=== PATIENT | female | born 1965 | race Caucasian/White ===

== ENCOUNTER 2024-07-09 13:12 | Outpatient (AMB) | payer BC, SELFPAY ==
--- NOTE | 2024-07-09 13:14 | MHC.OFFVIS ---
Vital Signs 07/09/24 13:16 Height 5 ft 6 in Weight 170 lb 13.732 oz BMI 27.6 BP 126/72 Blood Pressure Location Lt brachial Position Sitting Pulse 72 Pulse Source Pulse Oximeter Pulse Oximetry (%) 98 Oxygen Delivery Method Room Air Intake Visit Reasons: Rheumatoid Arthritis Intake Note: Patient presents for follow up on rheumatoid arthitis. Allergies No Known Allergies Allergy (Verified 07/09/24 13:18) HPI HPI Rheumatoid Arthritis: Details: R trochanteric bursa pain is uncontrolled. No benefit with cortisone injection [address] Quiñonez ATC. She is not consistent with home exercise program. Completed PT in the past. Held DMARDs for 2 weeks for vaccinations. Increase stiffness. TB test positive in March then repeat was negative. CXR was negative. [facility] Medical History (Updated 07/09/24 @ 14:12 by Nacho Ngo MD) Bilateral bunions Bursitis of hip, right Rheumatoid aortitis Social History (Updated 07/09/24 @ 13:29 by Cindy Martinez CMA) Alcohol intake: current Alcohol intake frequency: holidays/special occasions only Alcohol type: wine Patient Tobacco Use Status: Never used Tobacco Review of Systems Const All systems reviewed & are unremarkable except as noted in HPI and below Physical Exam Vital Signs: Last Vital Signs Pulse 72 07/09/24 13:16 BP 126/72 07/09/24 13:16 Pulse Ox 98 07/09/24 13:16 Oxygen Delivery Method Room Air 07/09/24 13:16 BMI result Body Mass Index 27.6 Const Other: General: Comfortable CVS: RRR Respiratory: clear to auscultation bilaterally. Good respiratory effort Skin: No lesions seen MSK: No tenderness of any joints. She has volar subluxation right 2nd and 3rd MCP with bilateral ulnar deviation of MCPs. Synovitis present left MTPs without pain. Good range of motion of upper extremities and lower extremities. Bilateral trochanteric bursa tenderness found. Assessment & Plan Assessment & Plan (1) Rheumatoid arthritis: Comment: She has clinical control on combination Hyrimoz and methotrexate. She felt better when she was on Humira and even more better when she was on Enbrel. She has stiffness and sometimes is not consistent with taking her DMARD therapy on time and may skip a week. She will work on consistency for next visit. Code(s): M06.9 - Rheumatoid arthritis, unspecified Category: Medical Plan: Continue Hyrimoz weekly subcutaneous injection Continue methotrexate 17.5 mg once weekly Continue folic acid 1 mg daily Can consider increasing methotrexate dose at follow-up visit Return to clinic in 3 months [facility] (2) Other manager long term care (current) drug therapy: Code(s): Z79.899 - Other [facility] Category: Medical Plan: See above (3) Trochanteric bursitis of both hips: Comment: Uncontrolled pain. Code(s): M70.61 - Trochanteric bursitis, right hip; M70.62 - Trochanteric bursitis, left hip Category: Medical Plan: I recommend regular exercise program at home Return to clinic 3 months Orders: Orders Hepatitis B,C Profile Today M06.9 - Rheumatoid arthritis, unspecified, Z79.899 - Other manager long term care (current) drug therapy Coding Level of Care Code Est Pt Level 4 (60659) Complex EM visit Add On G2211 Diagnoses Rheumatoid arthritis M06.9 Other manager long term care (current) drug therapy Z79.899 Trochanteric bursitis of both hips M70.61; M70.62
[2024-07-09 13:16] VITALS: BP 126/72; PULSE 72; O2SAT 98; BMI 27.6
--- OUTSIDE RECORDS SUMMARY | 2024-07-09 14:22 | XMS_ITS ---
Author Name [facility] Organization Unknown History of Medication Use Medication Directions Dispensed Refills Start Date End Date Stat us Sodium Fluoride 5000 Plus 1.1 % dental cream USE DIRECTED 04/12/2024 complet ed Enbrel SureClick 50 mg/mL (1 mL) subcutaneous pen injector 04/12/2024 completed Flucelvax Quad (PF) 60 mcg (15 mcg x 4)/0.5 mL IM syringe 04/12/2024 completed Humira(CF) Pen 40 mg/0.4 mL subcutaneous kit 04/12/2024 complete d folic acid 1 mg tablet 04/12/2024 active Hyrimoz(CF) Pen 40 mg/0.4 mL subcutaneous pen injector 04/12/2024 active meloxicam 15 mg tablet TAKE 1 TABLET BY MOUTH EVERY DAY WITH FOOD NEEDED 04/12/2024 active Flowflex COVID-19 Antigen Home Test kit TEST DIRECTED TODAY 04/12/2024 completed methotrexate sodium 2.5 mg tablet TAKE 7 TABLETS BY MOUTH ONCE PER WEK 04/12/2024 active atorvastatin 10 mg tablet 04/12/2024 active ibuprofen 600 mg tablet TAKE 1 TABLET BY MOUTH EVERY 6 TO 8 HOURS NEEDED FOR PAIN 04/12/2024 completed azithromycin 250 mg tablet TAKE 2 TABLETS BY MOUTH ON DAY 1 THEN 1 TABLET BY MOUTH EVERY DAY DAYS 2 THROUGHT 5 04/12/2024 completed neomycin 3.5 mg/g-polymyxin B 10,000 unit/g-dexameth 0.1 % eye oint 04/12/2024 completed amoxicillin 500 mg tablet TAKE 1 TABLET BY MOUTH THREE TIMES DAILY FOR 10 DAYS 04/12/2024 completed prednisone 5 mg tablet TAKE 3 TABLETS BY MOUTH EVERY DAY FOR 7 DAYS THEN TAKE 2 TABLETS BY MOUTH EVERY DAY FOR 7 DAYS THEN TAKE 1 TABLET BY MOUTH EVERY DAY FOR 7 DAYS 04/12/2024 completed neomycin-polymyxin- dexameth 3.5 mg/mL-10,000 unit/mL-0.1% eye drops 04/12/2024 completed Suprep Bowel Prep Kit 17.5 gram-3.13 gram-1.6 gram oral solution MX AND DRK UTD 04/12/2024 completed benzonatate 100 mg capsule 04/12/2024 completed folic acid (FOLVITE) tablet 1 mg Take 1 tablet (1 mg total) by mouth daily. 11/03/2023 active VITAMIN D, ERGOCALCIFEROL, PO Take 4,000 Units by mouth. 11/03/2023 active atorvastatin (LIPITOR) tablet 10 mg TAKE 1 TABLET(10 MG) BY MOUTH DAILY 11/03/2023 active methotrexate 2.5 MG tablet Take 1 tablet (2.5 mg total) by mouth once a week. 7 tablets once a week 11/03/2023 active azithromycin (Zithromax Z-Lopez) 250 MG tablet Take 2 tablets (500 mg) on Day 1, followed by 1 tablet (250 mg) once daily on Days 2 through 5. 11/03/2023 aborted Acetaminophen (TYLENOL 8 HOUR PO) Take by mouth as needed. 11/03/2023 active Zinc 30 MG TABS 11/03/2023 abort ed Hyrimoz 40 MG/0.4ML SOAJ once a week. 11/03/2023 active meloxicam (MOBIC) 15 MG tablet Take 1 tablet (15 mg total) by mouth continuous prn for pain. 11/03/2023 active HUMIRA PEN 40 MG/0.4ML prefilled pen injector 11/03/2023 aborted methotrexate sodium 2.5 mg tablet TAKE 6 TABLETS BY MOUTH 1 TIME A WEEK TAKE 6 TABLETS BY MOUTH 1 TIME A WEEK 04/01/2022 completed atorvastatin 10 mg tablet atorvastatin 10 mg tablet 04/01/2022 completed Humira(CF) Pen 40 mg/0.4 mL subcutaneous kit Humira(CF) Pen 40 mg/0.4 mL subcutaneous kit 04/01/2022 completed meloxicam 15 mg tablet TAKE 1 TABLET BY MOUTH DAILY TAKE 1 TABLET BY MOUTH DAILY 04/01/2022 completed folic acid 1 mg tablet folic acid 1 mg tablet 04/01/2022 completed zinc zinc 04/01/2022 completed Problems Problem Status Onset Date Problem Type Date of Resolution Source Overweight (BMI 25.0-29.9) active 8 ProblemAct [facility] Hyperlipidemia active 8 ProblemAct [facility] Pain of left forearm active 2023-01-05 9 ProblemAct [facility] Encounter for screening colonoscopy active 8 ProblemAct [facility] Venous insufficiency active EncounterDiagnosisA ct [facility] Injury of toe on right foot active 2023-03-08 5 ProblemAct [facility] Palpitations active 8 ProblemAct [facility] Visit for screening mammogram active 8 ProblemAct [facility] Flu vaccine need active 2023-03-08 5 ProblemAct [facility] Adjustment disorder active 2020-04-08 6 ProblemAct [facility] Memory difficulties active 2 ProblemAct [facility] Dizziness active 2020-04-08 6 ProblemAct [facility] History of palpitations active EncounterDiagnos isAct [facility] Suspected sleep apnea active 2022-09-05 4 ProblemAct [facility] Hematuria active 2022-09-05 4 ProblemAct [facility] Vitamin D deficiency active 3 ProblemAct [facility] RA (rheumatoid arthritis) active 1 ProblemAct [facility] Gross hematuria active 2020-02-06 1 ProblemAct [facility] BMI 27.0-27.9,adult active 2022-09-05 4 ProblemAct [facility] COVID-19 active 4 ProblemAct [facility] Asymptomatic varicose veins of both lower extremities active 2022-09-05 4 ProblemAct [facility] Stress active 8 ProblemAct [facility] Chronic RLQ pain active 2022-09-05 4 ProblemAct [facility] Hyponatremia active 2022-01-06 9 ProblemAct [facility] BMI 30.0-30.9,adult active 2020-04-08 6 ProblemAct [facility] Suprapubic discomfort active 2020-02-06 1 ProblemAct [facility] Bilateral lower extremity edema active 2 ProblemAct [facility] Upper respiratory tract infection active 2 ProblemAct [facility] Hypercholesterolemia active 2022-03-09 3 ProblemAct [facility] Rheumatoid arthritis active 2022-03-09 3 ProblemAct [facility] Immunizations Vaccine Date Source Lot Number Status Covid-19 (Thinkature) Dilution Required 09/28/2020 [facility] [id number] completed Influenza Quad (Flucelvax) 0 .5mL >6mon (ccIIV4) 03/22/2023 [facility] [id number] completed Covid-19 (Pfizer) Dilution Required 08/30/2020 [facility] [id number] completed Pneumococcal Polysaccharide PPSV23 07/15/2019 [facility] S [id number] completed Covid-19 (Pfizer) Dilution Required 12/08/2021 [facility] [id number] completed Covid-19 (Pfizer) Dilution Required 04/24/2022 [facility] [id number] completed Influenza Quad (Flucelvax) 0 .5mL >6mon (ccIIV4) 05/08/2022 [facility] [id number] completed Adacel (Tdap) 05/08/2022 [facility] [id number] completed
== END 2024-07-09 14:11 | disposition home or self-care (01) ==
PROVIDERS: Visit Provider Internal Medicine Rheumatology
DX: M06.9 Rheumatoid arthritis, unspecified (principal); Z79.899 Other long term (current) drug therapy; M70.61 Trochanteric bursitis, right hip; M70.62 Trochanteric bursitis, left hip
CPT/HCPCS: 99214

== ENCOUNTER → 2024-07-09 13:12 | Outpatient (BNVA) | payer BC, SELFPAY | PROVIDERS: Visit Provider Internal Medicine Rheumatology ==

== ENCOUNTER 2024-10-06 09:39 | Outpatient (AMB) | payer BC, SELFPAY ==
[2024-10-06 09:50] VITALS: BP 128/72; PULSE 85; O2SAT 99; BMI 27.7
--- NOTE | 2024-10-06 09:50 | MHC.OFFVIS ---
Vital Signs 10/06/24 09:50 Height 5 ft 6 in Weight 171 lb 11.841 oz BMI 27.7 BP 128/72 Blood Pressure Location Lt brachial Position Sitting Pulse 85 Pulse Source Pulse Oximeter Pulse Oximetry (%) 99 Oxygen Delivery Method Room Air Intake Visit Reasons: 3 month Intake Note: P PPatient presents for follow up on rheumatoid arthritis. Patient would like refills on Hyramoz, and Methotrexate, too. Allergies No Known Allergies Allergy (Verified 10/06/24 09:53) HPI HPI 3 month: Details: R trochanteric bursa and groin pain. Groin pain is new. She is having difficulty with ambulation. She is limping. Lays on stomach when sleeping because she can not sleep on her right side. She does not feel she is well controlled for RA. Needs hyrimoz before it is due. She feels like she needs Hyrimoz 2-3 days before it is due with increased joint pain. She felt she was better controlled on Enbrel systemically. She has been compliant with taking Enbrel and methotrexate weekly. MS is variable. [facility] Medical History (Updated 10/06/24 @ 13:44 by Nacho Ngo MD) Bilateral bunions Bursitis of hip, right Rheumatoid aortitis Social History (Updated 07/09/24 @ 13:29 by Cindy Martinez CMA) Alcohol intake: current Alcohol intake frequency: holidays/special occasions only Alcohol type: wine Patient Tobacco Use Status: Never used Tobacco Review of Systems Const All systems reviewed & are unremarkable except as noted in HPI and below Physical Exam Vital Signs: Last Vital Signs Pulse 85 10/06/24 09:50 BP 128/72 10/06/24 09:50 Pulse Ox 99 10/06/24 09:50 Oxygen Delivery Method Room Air 10/06/24 09:50 BMI result Body Mass Index 27.7 Const Other: General: Comfortable CVS: RRR Respiratory: clear to auscultation bilaterally. Good respiratory effort Skin: No lesions seen MSK: Tender bilateral PIP, and right wrists. She has volar subluxation right 2nd and 3rd MCP with bilateral ulnar deviation of MCPs. Normal range of motion of upper extremities and lower extremities. Bilateral trochanteric bursa tenderness found right greater than left. Results Reviewed Results Reviewed: QuantiFERON test result negative viewed on patient's phone through patient portal 03/2024. Assessment & Plan Assessment & Plan (1) Rheumatoid arthritis: Comment: Benefit on Hyrimoz is not lasting the whole week prior to next dose. Secondary treatment failure. She felt better when she was on Enbrel with last joint pain and fatigue. Rheumatology history: Diagnosed with rheumatoid arthritis early . Seronegative deforming. She was on methotrexate and Enbrel when diagnosed-06/2020. Enbrel change to Humira due to pain from extensive tenosynovitis of foot on MRI, which improved swelling and pain. Humira 07/2020-. 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 Code(s): M06.9 - Rheumatoid arthritis, unspecified Category: Medical Plan: Labs for drug monitoring on high-risk medication ordered. After lab results are back, I will start PA process for Enbrel, which will replace hyrimoz. Continue Hyrimoz weekly subcutaneous injection Continue methotrexate 17.5 mg once weekly Continue folic acid 1 mg daily Requesting chest x-ray results Return to clinic in 3 months (2) Other assisted (current) drug therapy: Code(s): Z79.899 - Other local company intermodal truck driver (current) drug therapy Category: Medical Plan: See above (3) Trochanteric bursitis of both hips: Comment: Uncontrolled pain. Failed cortisone injections. She has completed PT in the past with some benefit. Code(s): M70.61 - Trochanteric bursitis, right hip; M70.62 - Trochanteric bursitis, left hip Category: Medical Plan: PT ordered for hip strengthening Return to clinic 3 months (4) Right hip pain: Code(s): M25.551 - Pain in right hip Category: Medical Plan: X-ray bilateral hips ordered. Left hip x-ray we will serve as baseline/comparison PT ordered for hip strengthening Return to clinic 3 months Orders: Orders Complete Blood Count Auto Diff Today Z79.60 - alf (current) use of unspecified immunomodulators and immunosuppressants Creatinine Today Z79.60 - alf (current) use of unspecified immunomodulators and immunosuppressants Alanine Aminotransferase Today Z79.60 - dedicated intermodal truck driver (current) use of unspecified immunomodulators and immunosuppressants C Reactive Protein Today Z79.899 - Other assisted (current) drug therapy XR hand LT min 3V Today M06.9 - Rheumatoid arthritis, unspecified XR hand RT min 3V Today M06.9 - Rheumatoid arthritis, unspecified XR foot RT min 3V Today M06.9 - Rheumatoid arthritis, unspecified Aspartate Amino Transferase Today Z79.60 - dedicated intermodal truck driver (current) use of unspecified immunomodulators and immunosuppressants Erythrocyte Sedimentation Rate Today Z79.899 - Other local company intermodal truck driver (current) drug therapy XR hips JONA min 3V Today M06.9 - Rheumatoid arthritis, unspecified XR foot LT min 3V Today M06.9 - Rheumatoid arthritis, unspecified, Z79.899 - Other local company intermodal truck driver (current) drug therapy PT Evaluation and Treatment Today M25.551 - Pain in right hip, M70.61 - Trochanteric bursitis, right hip, M70.62 - Trochanteric bursitis, left hip Coding Level of Care Code Est Pt Level 4 (28201) Complex EM visit Add On G2211 Diagnoses Rheumatoid arthritis M06.9 Other local company intermodal truck driver (current) drug therapy Z79.899 Trochanteric bursitis of both hips M70.61; M70.62 Right hip pain M25.551
--- OUTSIDE RECORDS SUMMARY | 2024-10-06 11:00 | XMS_ITS | Clinical Summary ---
Author Organization Formerly [facility] Address [address] [place] [id number] Care Team Providers Care [employer] Name Role Phone Unavailable Primary Care Provider Unavailabl e Encounters Date Type Department Care Team Description 09/11/2024 Orders Only [address] [phone] Juliane London APRN from Last 3 Months Social History Tobacco Use Types Packs/Day Years Used Date Smoking Tobacco: Never Assessed Sex and Gender Information Value Date Recorded Sex Assigned at Female 03/26/2023 9:44 PM EDT Gender Identity Not on file Sexual Orientation Heterosexual (straight) 03/26 9:44 PM EDT Plan of Treatment Health Maintenance Due Date Last Done Comments Hepatitis C Virus Screening 1965 HIV Screening 1977 DTaP/Tdap/Td Vaccines (1 - Tdap) 10/12/1983 Hepatitis B Vaccines (1 of 3 - 19+ 3-dose series) 10/12/1983 Pneumococcal Vaccines 50+ (1 of 1 - PCV) 2014 Zoster (Shingles) Vaccine (1 of 2) 2014 COVID-19 Vaccine ( - 2023-2 5 season) 2024 Pneumococcal Vaccine: Pediat lilliana (0-5 Years) and At-Risk Patients (6 to 49 Years) Aged Out No longer eligible b ased on patient's age to complete this topic Procedures Procedure Name Priority Date/Time Associated Diagnosis Comments URINE CULTURE Routine 09/11/2024 12:00 AM EST from Last 3 Months Results * (ABNORMAL) URINE CULTURE (09/11/2024 12:00 AM EST) Source URINE, CLEAN CATCH [facility] Culture Less than 10,000 CFU/mL of a single Gram-positive, non-GBS,(A) [facility] Culture organism isolated. No further testing will be performed. If(A) [facility] Culture clinically indicated, recollect a clean-catch, mid-stream(A) [facility] Culture urine, minimizing contamination, and transfer immediately to(A) [facility] Culture a urine culture transport tube.(A) [facility] Comment: NOTE: For urine culture specimens not submitted in jiang top tubes, due to supply chain limits, the laboratory is temporarily performing urine cultures from FDA approved preservative tubes that have not been validated, as well as from refrigerated sterile urine collection cups that do not contain a preservative. Culture of unpreserved urine may produce falsely elevated bacterial counts. Urine 09/11/2024 09/12/2024 3:3 8 AM EST Narrative [facility] - 09/13/2024 9:59 AM EDT Urine Source: ??URINE, CLEAN CATCH Juliane London APRN LAB AMB MICRO OR DERABLES [facility] [address], [place] from Last 3 Months
--- OUTSIDE RECORDS SUMMARY | 2024-10-06 11:00 | XMS_ITS | Data Portability ---
Author Organization [place] - [facility], [facility] Address [address] [place] [address] Care Team Providers Care Embedded Software Design Engineer Name Role Phone FACUNDO HANKINS Primary Care Provider [phone] Assessment No assessment recorded. Plan of Treatment Reminders Order Date Submit Date Provider Last Modified By Organization Details Last Modified Time Details Appointments ANNUAL [employer]ARM [employer]NER 20 2024 09:30A M Juliane Simeon APRN Not available Not available Not available Lab culture, vaginal, yeast - PLS RUN ID & SENSTIVIT IES INCLIDING FLUCONAZO LE AND ITRACONAZ OLE 2024 025 [facility], [address] [place] [address], [id number] 09/14/2024 14:55:40 urinalysi s, dipstick 2024 025 [email or web address] In-Office Order, Internal Use Only DO Not Attach Compendium DO Not Attach Compendium, Do Not Delete/merge, [id number] 09/11/2024 10:07:15 culture, urine 2024 025 [facility], [address] [place], [address] 09/13/2024 10:15:34 urinalysi s, dipstick 2023 024 PETR In-Office Order, Internal Use Only DO Not Attach Compendium DO Not Attach Compendium, Do Not Delete/merge, [id number] 04/13/2024 10:12:56 urinalysi s, dipstick 2022 023 [email or web address] In-Office Order, Internal Use Only DO Not Attach Compendium DO Not Attach Compendium, Do Not Delete/merge, [id number] 04/03/2023 17:38:44 pap, IG + HPV 2022 023 [facility], [address] [place], [address] 04/11/2023 13:24:15 urinalysi s, dipstick 2021 022 [email or web address] In-Office Order, Internal Use Only DO Not Attach Compendium DO Not Attach Compendium, Do Not Delete/merge, [id number] 03/30/2022 14:07:32 urinalysi s, dipstick 2020 021 [email or web address] In-Office Order, Internal Use Only DO Not Attach Compendium DO Not Attach Compendium, Do Not Delete/merge, [id number] 02/21/2021 11:00:22 Referral None recorded. Procedures None recorded. Surgeries None recorded. Imaging MAMMO, screening , digital, bilateral 2023 024 [facility], [address], [place], [address], 05/28/2024 09:51:38 MAMMO, screening , digital, bilateral 2022 023 [facility], [address], [address], [place], [address], 05/17/2023 14:38:25 bone density 2022 023 [facility], [address], [place], [address], 05/15/2023 15:04:44 MAMMO, screening , digital, bilateral - If dense breasts (>50%), please proceed with bilateral breast screening ultrasoun d. 2021 022 [facility], [address], [place], [address], 05/15/2022 15:52:59 MAMMO, screening , digital, bilateral , w/ CAD 2020 021 [facility], [address] [facility], [address], [place], [address], 05/15/2021 03:39:30 Medication Orders None recorded. Patient TargetsNo targets recorded. Patient Instructions Encounter Date Encounter Id Patient Instructions Last Modified By Organization Details Last Modified Time 02/21/2021 [id number] tips to help you stay healthy Not available 02/21/2021 11:00:22 Here for chief radiation therapist sofi zaidi. BSE reviewed and recommended. Reviewed calcium and vitamin D needs and prevention of osteoporosis. Reviewed normal menopausal symptoms. Mammogram recommended yearly after 40 by the ACS and ACOG. Colonoscopy recommended q 3 - 5 yrs given hx of polyps. Not available 02/21/2021 11:00:20 04/03/2023 [id number] Counseled regarding prevention of STD's/ Counseled regarding contraceptive options. Counseled regarding HPV vaccine. Advised avoidance of tobacco, alcohol and drugs. [email or web address] Not available 04/03/2023 15:06:36 Reason for Referral None Reported. Results Created Date Observation Date Name Description Value Unit Range Abnormal Flag Note LastModifiedBy Organization Detail LastModifiedTime 02/22/2002/21/2021 urina lysis , dipst ick Interpretati on negati ve Not Available In-Office Order Internal Use Only DO Not Attach Compendium DO Not Attach Compendium, Do Not Delete/merge, [id number] 02/21/2021 09:27:35 02/22/20 21 02/21/2021 urina lysis , dipst ick Leukocytes Negati ve Not Available In-Office Order Internal Use Only DO Not Attach Compendium DO Not Attach Compendium, Do Not Delete/merge, [id number] 02/21/2021 09:27:35 02/22/20 21 02/21/2021 urina lysis , dipst ick Nitrite negati ve Not Available In-Office Order Internal Use Only DO Not Attach Compendium DO Not Attach Compendium, Do Not Delete/merge, [id number] 02/21/2021 09:27:35 02/22/20 21 02/21/2021 urina lysis , dipst ick Urobilinogen Normal : 0.2 mg/dl Not Available In-Office Order Internal Use Only DO Not Attach Compendium DO Not Attach Compendium, Do Not Delete/merge, [id number] 02/21/2021 09:27:35 02/22/20 21 02/21/2021 urina lysis , dipst ick Protein Negati ve Not Available In-Office Order Internal Use Only DO Not Attach Compendium DO Not Attach Compendium, Do Not Delete/merge, [id number] 02/21/2021 09:27:35 02/22/20 21 02/21/2021 urina lysis , dipst ick pH 5.0 Not Available In-Office Order Internal Use Only DO Not Attach Compendium DO Not Attach Compendium, Do Not Delete/merge, [id number] 02/21/2021 09:27:35 02/22/20 21 02/21/2021 urina lysis , dipst ick Blood Negati ve Not Available In-Office Order Internal Use Only DO Not Attach Compendium DO Not Attach Compendium, Do Not Delete/merge, [id number] 02/21/2021 09:27:35 02/22/20 21 02/21/2021 urina lysis , dipst ick Ketone Negati ve Not Available In-Office Order Internal Use Only DO Not Attach Compendium DO Not Attach Compendium, Do Not Delete/merge, [id number] 02/21/2021 09:27:35 02/22/20 21 02/21/2021 urina lysis , dipst ick Bilirubin Negati ve Not Available In-Office Order Internal Use Only DO Not Attach Compendium DO Not Attach Compendium, Do Not Delete/merge, [id number] 02/21/2021 09:27:35 02/22/20 21 02/21/2021 urina lysis , dipst ick Glucose Negati ve Not Available In-Office Order Internal Use Only DO Not Attach Compendium DO Not Attach Compendium, Do Not Delete/merge, 02/21/2021 09:27:35 02/22/20 21 02/21/2021 urina lysis , dipst ick Appearance Clear Not Available In-Offi ce Order Internal Use Only DO Not Attach Compendium DO Not Attach Compendium, Do Not Delete/merge, [id number] 02/21/2021 09:27:35 02/22/20 21 02/21/2021 urina lysis , dipst ick Color Yellow Not Available In-Office Order Internal Use Only DO Not Attach Compendium DO Not Attach Compendium, Do Not Delete/merge, 02/21/2021 09:27:35 03/30/20 22 03/30/2022 urina lysis , dipst ick Interpretati on negati ve Not Available In-Office Order Internal Use Only DO Not Attach Compendium DO Not Attach Compendium, Do Not Delete/merge, 03/30/2022 12:18:52 03/30/20 22 03/30/2022 urina lysis , dipst ick Leukocytes Negati ve Not Available In-Office Order Internal Use Only DO Not Attach Compendium DO Not Attach Compendium, Do Not Delete/merge, 03/30/2022 12:18:52 03/30/20 22 03/30/2022 urina lysis , dipst ick Nitrite negati ve Not Available In-Office Order Internal Use Only DO Not Attach Compendium DO Not Attach Compendium, Do Not Delete/merge, 03/30/2022 12:18:52 03/30/20 22 03/30/2022 urina lysis , dipst ick Urobilinogen Normal : 0.2 mg/dl Not Available In-Office Order Internal Use Only DO Not Attach Compendium DO Not Attach Compendium, Do Not Delete/merge, 03/30/2022 12:18:52 03/30/20 22 03/30/2022 urina lysis , dipst ick Protein Negati ve Not Available In-Office Order Internal Use Only DO Not Attach Compendium DO Not Attach Compendium, Do Not Delete/merge, 03/30/2022 12:18:52 03/30/20 22 03/30/2022 urina lysis , dipst ick pH 5.0 Not Available In-Office Order Internal Use Only DO Not Attach Compendium DO Not Attach Compendium, Do Not Delete/merge, 03/30/2022 12:18:52 03/30/20 22 03/30/2022 urina lysis , dipst ick Blood Negati ve Not Available In-Office Order Internal Use Only DO Not Attach Compendium DO Not Attach Compendium, Do Not Delete/merge, 03/30/2022 12:18:52 03/30/20 22 03/30/2022 urina lysis , dipst ick Specific Indore 1.000 Not Available In-Off ice Order Internal Use Only DO Not Attach Compendium DO Not Attach Compendium, Do Not Delete/merge, 03/30/2022 12:18:52 03/30/20 22 03/30/2022 urina lysis , dipst ick Ketone Negati ve Not Available In-Office Order Internal Use Only DO Not Attach Compendium DO Not Attach Compendium, Do Not Delete/merge, 03/30/2022 12:18:52 03/30/20 22 03/30/2022 urina lysis , dipst ick Bilirubin Negati ve Not Available In-Office Order Internal Use Only DO Not Attach Compendium DO Not Attach Compendium, Do Not Delete/merge, 03/30/2022 12:18:52 03/30/20 22 03/30/2022 urina lysis , dipst ick Glucose Negati ve Not Available In-Office Order Internal Use Only DO Not Attach Compendium DO Not Attach Compendium, Do Not Delete/merge, 03/30/2022 12:18:52 03/30/20 22 03/30/2022 urina lysis , dipst ick Appearance Clear Not Available In-Offi ce Order Internal Use Only DO Not Attach Compendium DO Not Attach Compendium, Do Not Delete/merge, 03/30/2022 12:18:52 03/30/20 22 03/30/2022 urina lysis , dipst ick Color Pale Yellow Not Available In-Office Order Internal Use Only DO Not Attach Compendium DO Not Attach Compendium, Do Not Delete/merge, 03/30/2022 12:18:52 04/03/20 23 04/03/2023 urina lysis , dipst ick Interpretati on negati ve Not Available In-Office Order Internal Use Only DO Not Attach Compendium DO Not Attach Compendium, Do Not Delete/merge, 04/03/2023 17:16:36 04/03/20 23 04/03/2023 urina lysis , dipst ick Leukocytes Negati ve Not Available In-Office Order Internal Use Only DO Not Attach Compendium DO Not Attach Compendium, Do Not Delete/merge, 04/03/2023 17:16:36 04/03/20 23 04/03/2023 urina lysis , dipst ick Nitrite negati ve Not Available In-Office Order Internal Use Only DO Not Attach Compendium DO Not Attach Compendium, Do Not Delete/merge, 04/03/2023 17:16:36 04/03/2004/03/2023 urina lysis , dipst ick Urobilinogen Normal : 0.2 mg/dl Not Available In-Office Order Internal Use Only DO Not Attach Compendium DO Not Attach Compendium, Do Not Delete/merge, 04/03/2023 17:16:36 04/03/20 23 04/03/2023 urina lysis , dipst ick Protein Negati ve Not Available In-Office Order Internal Use Only DO Not Attach Compendium DO Not Attach Compendium, Do Not Delete/merge, 04/03/2023 17:16:36 04/03/2004/03/2023 urina lysis , dipst ick pH 5.0 Not Available In-Office Order Internal Use Only DO Not Attach Compendium DO Not Attach Compendium, Do Not Delete/merge, 04/03/2023 17:16:36 04/03/20 23 04/03/2023 urina lysis , dipst ick Blood Negati ve Not Available In-Office Order Internal Use Only DO Not Attach Compendium DO Not Attach Compendium, Do Not Delete/merge, 04/03/2023 17:16:36 04/03/2004/03/2023 urina lysis , dipst ick Specific Indore 1.000 Not Available In-Off ice Order Internal Use Only DO Not Attach Compendium DO Not Attach Compendium, Do Not Delete/merge, 04/03/2023 17:16:36 04/03/20 23 04/03/2023 urina lysis , dipst ick Ketone Negati ve Not Available In-Office Order Internal Use Only DO Not Attach Compendium DO Not Attach Compendium, Do Not Delete/merge, 04/03/2023 17:16:36 04/03/20 23 04/03/2023 urina lysis , dipst ick Bilirubin Negati ve Not Available In-Office Order Internal Use Only DO Not Attach Compendium DO Not Attach Compendium, Do Not Delete/merge, 04/03/2023 17:16:36 04/03/20 23 04/03/2023 urina lysis , dipst ick Glucose Negati ve Not Available In-Office Order Internal Use Only DO Not Attach Compendium DO Not Attach Compendium, Do Not Delete/merge, 04/03/2023 17:16:36 04/03/20 23 04/03/2023 urina lysis , dipst ick Appearance Clear Not Available In-Offi ce Order Internal Use Only DO Not Attach Compendium DO Not Attach Compendium, Do Not Delete/merge, 04/03/2023 17:16:36 04/03/20 23 04/03/2023 urina lysis , dipst ick Color Pale Yellow Not Available In-Office Order Internal Use Only DO Not Attach Compendium DO Not Attach Compendium, Do Not Delete/merge, 04/03/2023 17:16:36 04/04/2004/04/2023 HPV MRNA E6/E7 HPV MRNA E6/E7 Negati ve negati ve APTIM A HPV assay detec ts 14 high risk HPV types (HPV 16,18 ,31,3 3,35, 39,45 ,51,5 2,56, 58,59 ,66,6 8). The assay is FDA appro edinson for testi ng ThinP rep liqui d Pap vials but not FDA appro edinson for detec ting HPV in SureP ath liqui d Pap speci mens. In-ho use valid ation has shown the assay can detec t all HPV types [facility] Not Available [facility] [address] [place], [address] 04/11/2023 13:24:13 04/04/20 23 04/04/2023 THINP REP PAP TEST (IMAG ER), HPV SCREE N, REFLE X HPV 16,18 /45 report Report Final Gynec elly ibarra Cytol ogy Repor t ----- ----- ----- ----- ----- ----- ----- ----- ----- ----- ----- ----- ThinP rep Pap Test, HPV Scree n, Refle x HPV Genot ype SPECI MEN ADEQU ACY: SATIS FACTO RY FOR EVALU ATION . INTER PRETA TION: NEGAT SYDNIE FOR INTRA EPITH BRAYAN Francois OR МАРИЯ ROWE . Elect vanesa Sosa d: Attila Sun, [place] (ASCP ) ----- ----- ----- ----- ----- ----- ----- ----- ----- ----- ----- ----- CLINI QUINN INFOR MOLLY N: LMP: NG Biops y Date: NG Speci men Sourc e: Cervi x, Endoc ervix Previ ous Pap Date: NG HPV RESUL TS: HPV mRNA E6/E7 [id number] Appro edinson: 04/05 Negat sydnie REF RANGE : Negat sydnie CPT Codes : 21539 ICD Codes : Z01.4 19, Z01.4 11 Not Available [facility] [address] [place], [address] 04/11/2023 13:24:15 04/13/20 24 04/13/2024 urina lysis , dipst ick Interpretati on negati ve Not Available In-Office Order Internal Use Only DO Not Attach Compendium DO Not Attach Compendium, Do Not Delete/merge, [id number] 04/10/2024 08:28:34 04/13/20 24 04/13/2024 urina lysis , dipst ick Leukocytes Negati ve Not Available In-Office Order Internal Use Only DO Not Attach Compendium DO Not Attach Compendium, Do Not Delete/merge, [id number] 04/10/2024 08:28:34 04/13/20 24 04/13/2024 urina lysis , dipst ick Nitrite negati ve Not Available In-Office Order Internal Use Only DO Not Attach Compendium DO Not Attach Compendium, Do Not Delete/merge, [id number] 04/10/2024 08:28:34 04/13/20 24 04/13/2024 urina lysis , dipst ick Urobilinogen Normal : 0.2 mg/dl Not Available In-Office Order Internal Use Only DO Not Attach Compendium DO Not Attach Compendium, Do Not Delete/merge, [id number] 04/10/2024 08:28:34 04/13/20 24 04/13/2024 urina lysis , dipst ick Protein Negati ve Not Available In-Office Order Internal Use Only DO Not Attach Compendium DO Not Attach Compendium, Do Not Delete/merge, [id number] 04/10/2024 08:28:34 04/13/20 24 04/13/2024 urina lysis , dipst ick pH 5.0 Not Available In-Office Order Internal Use Only DO Not Attach Compendium DO Not Attach Compendium, Do Not Delete/merge, [id number] 04/10/2024 08:28:34 04/13/20 24 04/13/2024 urina lysis , dipst ick Blood Negati ve Not Available In-Office Order Internal Use Only DO Not Attach Compendium DO Not Attach Compendium, Do Not Delete/merge, [id number] 04/10/2024 08:28:34 04/13/20 24 04/13/2024 urina lysis , dipst ick Specific Indore 1.000 Not Available In-Off ice Order Internal Use Only DO Not Attach Compendium DO Not Attach Compendium, Do Not Delete/merge, [id number] 04/10/2024 08:28:34 04/13/20 24 04/13/2024 urina lysis , dipst ick Ketone Negati ve Not Available In-Office Order Internal Use Only DO Not Attach Compendium DO Not Attach Compendium, Do Not Delete/merge, [id number] 04/10/2024 08:28:34 04/13/20 24 04/13/2024 urina lysis , dipst ick Bilirubin Negati ve Not Available In-Office Order Internal Use Only DO Not Attach Compendium DO Not Attach Compendium, Do Not Delete/merge, [id number] 04/10/2024 08:28:34 04/13/20 24 04/13/2024 urina lysis , dipst ick Glucose Negati ve Not Available In-Office Order Internal Use Only DO Not Attach Compendium DO Not Attach Compendium, Do Not Delete/merge, [id number] 04/10/2024 08:28:34 04/13/20 24 04/13/2024 urina lysis , dipst ick Appearance Clear Not Available In-Offi ce Order Internal Use Only DO Not Attach Compendium DO Not Attach Compendium, Do Not Delete/merge, [id number] 04/10/2024 08:28:34 04/13/20 24 04/13/2024 urina lysis , dipst ick Color Pale Yellow Not Available In-Office Order Internal Use Only DO Not Attach Compendium DO Not Attach Compendium, Do Not Delete/merge, [id number] 04/10/2024 08:28:34 09/12/19 25 09/11/2024 URINE CULTU RE urine source URINE, CLEAN CATCH Not Available [facility] [address] [place], [address] 09/13/2024 10:15:34 09/12/19 25 09/11/2024 URINE CULTU RE micro culture result abnormal Less than 10,00 0 CFU/m L of a singl e Gram- posit sydnie, non-G BS, organ ism isola gregoria. No furth er testi ng will be perfo rmed. If clini ryan indic ated, recol lect a clean -catc h, mid-s tream urine , minim izing conta minat ion, and trans magaly immed iatel y to a urine cultu re trans port tube. NOTE: For urine cultu re speci mens not submi tted in jiang top tubes , due to suppl y chain limit s, the labor atory is tempo raril y perfo rming urine cultu res from FDA appro edinson prese rvati ve tubes that have not been valid ated, as well as from refri gerat ed steri le urine colle ction cups that do not conta in a prese rvati ve. Cultu re of unpre serve d urine may produ ce false ly eleva gregoria bacte rial count s. Not Available [facility] [address] [place], [address] 09/13/2024 10:15:34 09/12/19 25 09/21/2024 CULTU RE, YEAST , W/DIR ECT FLUOR ESCEN T IDA culture, yeast, w/direct fluorescent ida SEE NOTE CULTU RE, YEAST , W/DIR ECT FLUOR ESCEN T IDA Micro Numbe r: [id number] Test Statu s: Final Speci men Sourc e: Vagin a Speci men Quali ty: Adequ ate Smear : No yeast seen Resul t: No yeast isola gregoria Not Available [facility] [address], [place], [address], 09/21/2024 11:25:04 09/12/19 25 09/11/2024 urina lysis , dipst ick Interpretati on negati ve Not Available In-Office Order Internal Use Only DO Not Attach Compendium DO Not Attach Compendium, Do Not Delete/merge, 09/11/2024 09:46:58 09/12/19 25 09/11/2024 urina lysis , dipst ick Leukocytes Negati ve Not Available In-Office Order Internal Use Only DO Not Attach Compendium DO Not Attach Compendium, Do Not Delete/merge, 09/11/2024 09:46:58 09/12/19 25 09/11/2024 urina lysis , dipst ick Nitrite negati ve Not Available In-Office Order Internal Use Only DO Not Attach Compendium DO Not Attach Compendium, Do Not Delete/merge, 09/11/2024 09:46:58 09/12/19 25 09/11/2024 urina lysis , dipst ick Urobilinogen Normal : 0.2 mg/dl Not Available In-Office Order Internal Use Only DO Not Attach Compendium DO Not Attach Compendium, Do Not Delete/merge, 09/11/2024 09:46:58 09/12/19 25 09/11/2024 urina lysis , dipst ick Protein Negati ve Not Available In-Office Order Internal Use Only DO Not Attach Compendium DO Not Attach Compendium, Do Not Delete/merge, 09/11/2024 09:46:58 09/12/19 25 09/11/2024 urina lysis , dipst ick pH 5.0 Not Available In-Office Order Internal Use Only DO Not Attach Compendium DO Not Attach Compendium, Do Not Delete/merge, 09/11/2024 09:46:58 09/12/19 25 09/11/2024 urina lysis , dipst ick Blood Negati ve Not Available In-Office Order Internal Use Only DO Not Attach Compendium DO Not Attach Compendium, Do Not Delete/merge, 09/11/2024 09:46:58 09/12/19 25 09/11/2024 urina lysis , dipst ick Specific Indore 1.000 Not Available In-Off ice Order Internal Use Only DO Not Attach Compendium DO Not Attach Compendium, Do Not Delete/merge, 09/11/2024 09:46:58 09/12/19 25 09/11/2024 urina lysis , dipst ick Ketone Negati ve Not Available In-Office Order Internal Use Only DO Not Attach Compendium DO Not Attach Compendium, Do Not Delete/merge, 09/11/2024 09:46:58 09/12/1909/11/2024 urina lysis , dipst ick Bilirubin Negati ve Not Available In-Office Order Internal Use Only DO Not Attach Compendium DO Not Attach Compendium, Do Not Delete/merge, 09/11/2024 09:46:58 09/12/19 25 09/11/2024 urina lysis , dipst ick Glucose Negati ve Not Available In-Office Order Internal Use Only DO Not Attach Compendium DO Not Attach Compendium, Do Not Delete/merge, 09/11/2024 09:46:58 09/12/19 25 09/11/2024 urina lysis , dipst ick Appearance Clear Not Available In-Offi ce Order Internal Use Only DO Not Attach Compendium DO Not Attach Compendium, Do Not Delete/merge, [id number] 09/11/2024 09:46:58 09/12/19 25 09/11/2024 urina lysis , dipst ick Color Dark Yellow Not Available In-Office Order Internal Use Only DO Not Attach Compendium DO Not Attach Compendium, Do Not Delete/merge, [id number] 09/11/2024 09:46:58 05/14/20 21 05/11/2021 MAMMO , scree al, digit al, bilat eral, w/ CAD No observ ation record ed. [email or web address] [facility] [address] [place], [address], 05/15/2021 10:07:38 05/15/20 22 05/14/2022 MAMMO , scree al, digit al, bilat eral No observ ation record ed. [email or web address] [facility] ([facility]) [address] , [place], [address], 05/18/2022 17:19:55 04/24/20 23 04/19/2023 US, duple x, pelvi s, compl ete No observ ation record ed. [facility] [address] [address], [place], [address], 04/25/2023 13:15:55 05/15/20 23 05/15/2023 bone densi ty No observ ation record ed. [facility] [address] [facility] [address], [place], [address], 05/22/2023 16:26:32 05/17/20 23 05/15/2023 MAMMO , scree al, digit al, bilat eral No observ ation record ed. [facility] [address] , [place], [address], 05/22/2023 16:26:32 05/28/20 24 05/27/2024 MAMMO , scree al, digit al, bilat eral No observ ation record ed. [email or web address] [facility] [address] [facility] [address], [place], [address], 06/03/2024 17:54:06 Result Notes None recorded. Problems Name Problem SNOMED Code Status Onset Date Resolution Date Notes Provider Name and Address Organization Details Recorded Time Rheumatoid arthritis 77003550 Active 2021 Rosey Mcgrath null, [place] - [facility] 2 12:16:35 Hypercholestero lemia 36920612 Active 2021 Rosey Alcides null, [place] - [facility] 2 12:16:41 Problem Notes None recorded. Procedures Surgical History Date Name Laterality Status Provider Name and Address Organization Details Recorded Time 04/03/20 23 Date of Last Pap Smear completed Rosey Mcgrath [place] - [facility] 04/03/2023 15:08:10 07/08/19 20 Date of Last Mammogram completed Rosey Osuna [place] - [facility] 02/21/2021 09:25:46 07/08/19 20 Date of Last Colonoscopy completed Rosey [place] - [facility] 02/21/2021 09:25:56 07/08/19 18 Oophorectomy completed ASHLIE RODRIGUEZ CNM [address] [facility], [place], [address], [place] - [facility] 02/24/2020 15:18:08 07/08/19 13 excision of bunion completed Rosey [place]una [place] - [facility] 02/19/2020 11:50:33 Imaging Results Imaging Date Name Status LastModified by [facility] Details LastModified Time 05/11/2021 MAMMO, screening, digital, bilateral, w/ CAD completed [email or web address] [facility] [address] [place], [address], 05/15/2021 10:07:38 05/14/2022 MAMMO, screening, digital, bilateral completed [email or web address] [facility] ([facility]) [address], [place], [address], 05/18/2022 17:19:55 04/19/2023 US, duplex, pelvis, complete completed [facility] [address] [facility] [address], [place], [address], 04/25/2023 13:15:55 05/15/2023 bone density completed [facility] [address] [facility] [address], [place], [address], 05/22/2023 16:26:32 05/15/2023 MAMMO, screening, digital, bilateral completed [facility] [facility] [address], [place], [address], 05/22/2023 16:26:32 05/27/2024 MAMMO, screening, digital, bilateral completed [email or web address] [address] [facility] [address], [place], [address], 06/03/2024 17:54:06 Procedure Notes None recorded. Medical Equipment None Reported. Allergies No known drug allergies Medications Name Sig Start Date Stop Date Status Note LastModified by Organization Details LastModified Time atorvastati n 10 mg tablet TAKE 1/2 TABLET DAILY active Not Available Not Available No t Available azithromyci n 250 mg tablet TAKE 2 TABLETS BY MOUTH ON DAY 1 THEN 1 TABLET BY MOUTH EVERY DAY DAYS 2 THROUGHT 5 active Not Available Not Available No t Available meloxicam 15 mg tablet TAKE 1 TABLET DAILY WITH FOOD NEEDED active Not Available Not Available No t Available prednisone 5 mg tablet TAKE 3 TABLETS BY MOUTH EVERY DAY FOR 7 DAYS THEN TAKE 2 TABLETS BY MOUTH EVERY DAY FOR 7 DAYS THEN TAKE 1 TABLET BY MOUTH EVERY DAY FOR 7 DAYS 04/03 completed Not Available Not Available Not Available amoxicillin 500 mg tablet TAKE 1 TABLET BY MOUTH THREE TIMES DAILY FOR 10 DAYS 04/10 completed Not Available Not Available Not Available methotrexat e sodium 2.5 mg tablet TAKE 7 TABLETS BY MOUTH ONCE PER WEK active Not Available Not Available No t Available benzonatate 100 mg capsule 04/10 completed Not Available Not Available Not Available neomycin-po lymyxin-dex ameth 3.5 mg/mL-10,00 0 unit/mL-0.1 % eye drops 04/10 completed Not Available Not Available Not Available folic acid 1 mg tablet TAKE 1 TABLET DAILY active Not Available Not Available No t Available ibuprofen 600 mg tablet TAKE 1 TABLET BY MOUTH EVERY 6 TO 8 HOURS NEEDED FOR PAIN 04/10 completed Not Available Not Available Not Available neomycin 3.5 mg/g-polymy chance B 10,000 unit/g-dexa meth 0.1 % eye oint 04/10 completed Not Available Not Available Not Available Vitamin C active Not Available Not Marleny ilable Not Available aspirin 03/30 completed Not Available Not Available Not Available B Complex active Not Available Not Marleny ilable Not Available zinc active Not Available Not Availa ble Not Available Vitamin D active Not Available Not Marleny ilable Not Available Enbrel SureClick 50 mg/mL (1 mL) subcutaneou s pen injector 02/21 completed Not Available Not Available Not Available Suprep Bowel Prep Kit 17.5 gram-3.13 gram-1.6 gram oral solution MX AND DRK UTD 03/30 completed Not Available Not Available Not Available Multi For Her active Not Available Not Available Not Available Humira(CF) Pen 40 mg/0.4 mL subcutaneou s kit 04/10 completed Not Available Not Available Not Available Sodium Fluoride 5000 Plus 1.1 % dental cream USE DIRECTED 04/10 completed Not Available Not Available Not Available Flucelvax Quad (PF) 60 mcg (15 mcg x 4)/0.5 mL IM syringe 02/18 completed Not Available Not Available Not Available Flowflex COVID-19 Antigen Home Test kit TEST DIRECTED TODAY 04/03 completed Not Available Not Available Not Available Paxlovid 300 mg (150 mg x 2)-100 mg tablets in a dose pack TK 2 NIRMATREL VIR TS AND 1 RITONAVIR T TOGETHER PO BID FOR 5 DAYS 04/10 completed Not Available Not Available Not Available Hyrimoz(CF) Pen 40 mg/0.4 mL subcutaneou s pen injector active Not Available Not Available Not Available Vitals Date Recorded Body weight Body mass index (BMI) Body height Systolic blood pressure Diastolic blood pressure Provider Name and Address Organization Details Last Updated DateTime 02/21/2021 16625.96 g 29.6 kg/m2 170.18 cm 120 mm[Hg] 80 mm[Hg] Rosey Osuna [facility] 1 09:23:38 Date Recorded Body height Provider Name an d Address Organization Details Last Updated DateTime 03/30/2022 170.18 cm Rosey Mcgrath [facility] 03/30/2022 12:14:47 Date Recorded Body height Body mass index (BMI) Body weight Systolic blood pressure Diastolic blood pressure Provider Name and Address Organization Details Last Updated DateTime 04/03/2023 170.18 cm 26.8 kg/m2 23975.3 g 110 mm[Hg] 68 mm[Hg] Rosey Mcgrath [facility] 3 15:35:00 Date Recorded Body height Body mass index (BMI) Body weight Systolic blood pressure Diastolic blood pressure Provider Name and Address Organization Details Last Updated DateTime 04/10/2024 170.18 cm 27.3 kg/m2 53962.07 g 116 mm[Hg] 70 mm[Hg] Johanna Gerardo [facility] 4 09:32:16 Date Recorded Body height Body mass index (BMI) Body weight Systolic blood pressure Diastolic blood pressure Provider Name and Address Organization Details Last Updated DateTime 09/11/2024 170.18 cm 27.3 kg/m2 13900.07 g 118 mm[Hg] 68 mm[Hg] Johanna Gerardo [facility] 5 09:46:33 Social History Question Answer Notes LastModified by Organizat ion Details LastModified Time Tobacco Smoking Status Never Smoker Rosey Osuna [facility] 02/19/2020 11:48:41 What Is Your Level Of Alcohol Consumption? Occasional Information not available 02/19/2020 Is Blood Transfusion Acceptable In An Emergency? Yes [email or web address] Information not available 02/19/2020 Concerns About Meeting Basic Needs (food, Housing, Heat, Etc)? No [email or web address] Information not available 02/19/2020 In The 14 Days Before Symptom Onset, Have You Had Close Contact With A Laboratory-confir med COVID-19 While That Case Was Ill? No [email or web address] Information not available 02/21/2021 In The 14 Days Before Symptom Onset, Have You Had Close Contact With A Person Who Is Under Investigation For COVID-19 While That Person Was Ill? No [email or web address] Information not available 02/21/2021 Have You Been To An Area Known To Be High Risk For COVID-19? No [email or web address] Information not available 02/21/2021 Do You Reside In Or Have You Traveled To An Area Where Ebola Virus Transmission Is Active? 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 No Information no t available 03/30/2022 Have You Recently Or Are You Planning To Travel To An Area With Zika Virus? No [email or web address] Information not available 02/21/2021 Do You Have Any Children? Yes [email or web address] Information not available 02/19/2020 Does Your Partner Physically Hurt You Or Threaten To Hurt You? No [email or web address] Information not available 02/19/2020 Has Your Partner Forced You To Have Sex Or Perform Sex Acts When You Did Not Want To? No Information not available 02/19/2020 Does Your Partner Insult, Scream At Or Talk Down To You? No [email or web address] Information not available 02/19/2020 Does Your Partner Control You Or Any Part Of Your Life? No [email or web address] Information not available 02/19/2020 Are You Afraid Of Your Partner? No [email or web address] Information not available 02/19/2020 Drug Use? No [email or web address] Information no t available 02/19/2020 Do You Feel Safe At Home? Yes [email or web address] Information not available 02/19/2020 What Was The Date Of Your Most Recent Tobacco Screening? 04/03/2023 Information not available 04/03/2023 How Many Children Do You Have? 2 [email or web address] Information not available 02/19/2020 Are You Sexually Active? Yes [email or web address] Information not available 02/21/2021 General Stress Level Low [email or web address] Information not available 02/19/2020 Have You Recently Traveled Abroad? No [email or web address] Information not available 02/19/2020 Sex: Unknown Functional Status None recorded. Mental Status Question Answer Note LastModified by Organization D etails LastModified Time Do you have difficulty concentrating, remembering or making decisions? No Information no t available 03/30/2022 Family History Relationship Description Onset Age of this Age Resolved Age Notes LastModified by Organization Details LastModified Time Paternal Grandmother Malignant tumor of colon [email or web address] Not available 2020 09:24:30 Paternal Aunt Neoplasm of uterus [email or web address] Not available 2020 09:24:42 Mother Neoplasm of urinary bladder [email or web address] Not available 2020 09:24:55 Mother Heart disease [email or web address] Not available 2021 12:17:20 Mother Cerebrovascu lar accident [email or web address] Not available 12:17:28 Father Heart disease [email or web address] Not available 2021 12:17:20 Medical History No medical history recorded. Gynecological History Statement/Question Response Benign Breast Disease N Flow Light Date of Last Mammogram 07/08/2019 Date of LMP 07/08/2011 IPV Screen Done 04/10/2024 [facility] Biopsy N Post Menopausal Bleeding N STIs/STDs N PID N Cervical Cancer N History of Endometrial Biopsy? N BrCa gene tested? N Ovarian Cancer N Date of Last Colonoscopy 07/08/2019 Breast Cancer N Date of last DEXA 02/19/2020 Bladder Problems N Abnormal Uterine Bleeding N Last HPV Result Negative Abnormal Pap N BrCa Positive N Infertility N Leep N HPV Vaccine N Duration of Flow (days) 4 Endometriosis N Age at Menarche 12 Fibroids Y Uterine Cancer N Current Control Method Menopause Frequency of Cycle (Q days) 26 Sexually Active? Y Sexual Problems? Y Date of Last Pap Smear 04/03/2023 Hormone Replacement Therapy N Obstetrics History GPAL:G 2 P 2 0 0 2 Type Value Full Term 2 Living 2 Total 2 Past Encounters Encounter ID Performer Location Encounter Start Date Encounter Closed Date Diagnosis/Indication Diagnosis SNOMED-CT Code Diagnosis ICD10 Code Diagnosis Note [id number] ASHLIE RODRIGUEZ CNM [facility] [address] [place] [address] 02/19/2020 10:40:54 02/19/2020 13:10:35 Gynecologic examination 03939693 Z01.419 Depression screening 171 Z13.31 Score 1 of 6, a bit more anxious with pandemic. Screening mammography 24 207660 Z12.31 SBE taught and reviewed, mammogram every year. Menopause present 751060 006 N95.1 Wt bearing exercise, Vit D, Calcium and Magnesium supplement ation and encouraged in diet. Postmenopa usal bleeding 90297994 N95.0 Pt will get US and f/u with me. Vaginal dr blandon on intercourse 309915613 N89.8 Discussed atrophy and effect of menopause on vaginal tissue and sex. Reviewed lubricatio n vs moisturize r vs estrogen as treatment. Pt understand s that oral estrogen in postmenopa usal period is linked to higher risks for Dementia, DVTs, strokes, CV disease, among others. Pt will rediscuss this after US to check endometria l lining. [id number] ASHLIE RODRIGUEZ CNM [facility] [address] [place] [address] 02/24/2020 13:41:32 02/24/2020 14:46:22 Postmenopausal bleeding 66929810 N95.0 US shows nice thin endometriu m. Pt reassured. ? if vaginal bleeding. Will watch. Pt will call if sees again. Showed R side oopherecto my and L ovary WNL Uterine leiomyoma 183447 05 D25.9 Multiple small fibroids. Don't look any larger than US provided by pt from 2017. Pt reassured. [id number] ASHLIE RODRIGUEZ CNM [facility] [address] [place] [address] 02/21/2021 09:00:11 02/21/2021 11:17:02 Gynecologic examination 49973081 Z01.419 SBE reviewed and encouraged . Cardio and wt bearing exercise discussed Nutrition, portion control and good food selection discussed. Depression screening 171 Z13.31 Score 1, a bit more anxious with pandemic. Screening mammography 24 420187 Z12.31 SBE taught and reviewed, mammogram every year. Menopause present 731437 006 N95.1 Dexa WNL. Wt bearing exercise, Vit D, Calcium and Magnesium supplement ation and encouraged in diet. Atrophy of vagina 338025 009 N95.2 Discussed coconut oil and Revaree. Given info re: bonefide. Will think about it. Not interested in C at this time. [id number] JULIANE SIMEON APRN [facility] [address] [place] [address] 03/30/2022 12:10:10 03/30/2022 13:06:28 Gynecologic examination 99500439 Z01.419 Next pap is 2022 Brief discussion of changes in pap guidelines Menopause present 966571 006 N95.1 Review when to perform bone density evaluation : Last DEXA 02/19/2020 Screening mammography 24 381948 Z12.31 Advised to obtain a yearly screening mammogram and to perform monthly self breast exam. Depression screening 171 314226 Z13.31 Depression screening done. [id number] JULIANE SIMEON APRN [facility] [address] [facility] [place] [address] 04/03/2023 15:02:18 04/03/2023 16:01:32 Gynecologic examination 11163860 Z01.411 Screening mammography 24 489647 Z12.31 Advised to obtain a yearly screening mammogram and to perform monthly self breast exam. Postmenopausal state 764 21068 Z78.0 Atrophy of vagina 770017 009 N95.2 Mild Using lubricatio n without problems now Declines local estrogen therpay Depression screening 171 190503 Z13.31 Depression screening done. [id number] JULIANE SIMEON APRN [facility] [address] [place] [address] 04/10/2024 09:04:26 04/10/2024 09:59:48 Gynecologic examination 04706529 Z01.419 Screening mammography 24 107656 Z12.31 Advised to obtain a yearly screening mammogram and to perform monthly self breast exam. Next pap due in 2025 Menopause present 021309 006 N95.1 Review when to perform bone density evaluation : Last DEXA 05/15/2023 Spine with normal bone density Left hip with osteopenia T score -1.1 supplement s and weight bearing exercise recheck 2-3 years taking supplement s recheck 2-3 years Screening for malignant neoplasm of rectum 224057718 Z12.12 Exam deferred today she is already in touch with her GI office re scheduling her next colonoscop y Depression screening 171 682789 Z13.31 Negative screen for depression [id number] JULIANE SIMEON, BUSINESS SYSTEMS DEVELOPER [facility] [address] [place] [address] 09/11/2024 09:30:43 09/11/2024 10:03:01 Increased frequency of urination 399950314 R35.0 We will call with culture resuts Urine dip negative Candidal vulvovaginitis 69876041 B37.31 Mild inflammati on Yeast culture is done to confirm/di sconfirm contributi on to inflammati on She plans to use OTC clotrimazo le cream ( 3 day course) We will call with cultre result Health Concerns Section Related Observation LastModified by Organization Detai ls LastModified Time None Recorded Concern Status LastModified by Organization Details LastModified Time None Recorded Advance Directives Directive None Recorded Payers Encounter Date Sequence Insurance Name Policy Number Policy Levi Covered Member ID Levi Member ID Guarantor Name 02/21/2021 1 [employer] OPEN ACCESS ([place]) [id number] Varghese Hodulik [id number] Brenda Hodulik 03/30/2022 1 [employer] [place] [id number] Varghese Hodulik [id number] Brenda Hodulik 04/03/2023 1 [employer] ([place]) [id number] Varghese Hodulik [id number] Brenda Hodulik 04/10/2024 1 [place] [id number] Mark Bonnerulik [id number] Brenda Hodulik 09/11/2024 1 [place] [id number] Mark Hodulik [id number] Brenda Hodulik Notes Date Note Type Note Provider Name and Address Organization Details Recorded Time 02/21/2021 text/html [facility] Annual GYNReported bypatient.History:no gynecologic complaints Menstrual cycle:postmenopausal; PMB 2020 x 1 with WNL US afterwards, none since Urinary symptoms:No hematuria; No incontinence Vulva:No genital lesion Vagina:Normal vaginal discharge Breast:No breast pain; No breast lump; No nipple discharge Current Contraception:Monogam ous relationship Sexual activity:sexually active yes; No sexual complaints; Normal libido;Pain during intercourse Menopausal symptoms:No menopausal symptoms;Inadequacy of lubrication of vaginal mucosa Psychological symptoms:No depression; No anxiety; No PMDD Preventive measures:Encourage self breast examination; Encourage regular exercise; Encourage regular mammograms starting age 40; Followed with Q3 year pap smear and high risk HPV typing; Mammogram performed within the past year; Up to date on colonoscopy screening; DEXA up to date ASHLIE RODRIGUEZ CNM [address] [facility] [facility], [place], [address], [facility] 02/21/2021 11:00:46 03/30/2022 text/html [facility] Annual GYNReported bypatient.History:no gynecologic complaints Menstrual cycle:postmenopausal; PMB 2019 x 1 with WNL US afterwards, none since Urinary symptoms:No hematuria; No incontinence Vulva:No genital lesion Vagina:Normal vaginal discharge Breast:No breast pain; No breast lump; No nipple discharge Current Contraception:Monogam ous relationship Sexual activity:sexually active yes; No sexual complaints; Normal libido;Pain during intercourse Menopausal symptoms:No menopausal symptoms;Inadequacy of lubrication of vaginal mucosa Psychological symptoms:No depression; No anxiety; No PMDD Preventive measures:Encourage self breast examination; Encourage regular exercise; Encourage regular mammograms starting age 40; Followed with Q3 year pap smear and high risk HPV typing; Mammogram performed within the past year; Up to date on colonoscopy screening; DEXA up to date Patient is here today for her annual visit. Last annual was 02/11/2021 with PMOLast pap was performed on 02/20/2020 results were neg x2. Next pap due 2022Mammogram was done 05/11/2021olonoscopy was performed in 2019.Pt c/o of vaginal dryness Not interestd in local estrogen therpay Will try slippery stuff JULIANE SIMEON APRN [address] [facility] [facility], [place], [address], [facility] 03/30/2022 14:07:35 04/03/2023 text/html [facility] Annual GYNReported bypatient.History:no gynecologic complaints Menstrual cycle:postmenopausal Urinary symptoms:No hematuria; No incontinence Vulva:No genital lesion Vagina:Normal vaginal discharge Breast:No breast pain; No breast lump; No nipple discharge Current Contraception:Monogam ous relationship Sexual activity:sexually active yes ; No sexual complaints; Normal libido;Pain during intercourse Menopausal symptoms:No menopausal symptoms;Inadequacy of lubrication of vaginal mucosa Psychological symptoms:No depression; No anxiety; No PMDD Preventive measures:Encourage self breast examination; Encourage regular exercise; Followed with pap smear and high risk HPV typing every 3 years; Encourage regular mammograms starting age 40; Mammogram performed within the past year; Up to date on colonoscopy screening; DEXA up to date Patient is here today for her annual visit. Last annual was 02/11/2021 with PMOLast pap was performed on 02/20/2020 results were neg x2. Pap done todayMammogram was done 05/14/2022olonoscopy was performed in 2019.Pt c/o of vaginal dryness Not interested in local estrogen therapy Using [place] satisfactorily now Given name of slippery stuff again JULIANE SIMEON, JESICA [address] [facility], [address], [place], [address], [place] [facility] 04/03/2023 20:49:25 04/10/2024 text/html [facility] Annual GYNReported bypatient.History:no gynecologic complaints Menstrual cycle:postmenopausal Urinary symptoms:No hematuria; No incontinence Vulva:No genital lesion Vagina:Normal vaginal discharge Breast:No breast pain; No breast lump; No nipple discharge Current Contraception:Monogam ous relationship Sexual activity:sexually active yes male partner; No sexual complaints; Normal libido;Pain during intercourse Menopausal symptoms:No menopausal symptoms;Inadequacy of lubrication of vaginal mucosa Psychological symptoms:No depression; No anxiety; No PMDD Preventive measures:Encourage self breast examination; Encourage regular exercise; Followed with pap smear and high risk HPV typing every 3 years; Encourage regular mammograms starting age 40; Mammogram performed within the past year; Up to date on colonoscopy screening; DEXA up to date PRESENTS FOR ANNUAL VISIT W/ DPF. LAST ANNUAL VISIT 04/03/2023AP SMEAR 03/30/2023 [id number] 05/15/2023 NLDEXA 05/15/24 OSTEOPENIA LEFT HIP, t score -1.1;Spine with normal bone density Left hip with osteopenia T score -1.1 supplements and weight bearing exercise recheck 2-3 years (dforbes1, 11-13-2023) unpin noteCOLON SCREEN 2020 POLYPS Q 3 YRS W8ill check with GI regarding when she is dueC/O VAGINAL DRYNESS REFUSES HORMONES. USING LUBRICANTS W/ some RELIEF JULIANE SIMEON APRN [address] [facility], [address] [place] [address], [address], [facility] 04/10/2024 10:38:51 09/11/2024 text/html [facility] UTI/VoidingReported bypatient.Onset/Timin weeks Associated Symptoms:no urgency; no incontinence; no nocturia; no hematuria; no incomplete emptying; no flank pain; no back pain; no kidney stones;frequency;dysu riaWHC Vaginal/Vulvar ProblemReported bypatient.Location:[facility] Duration:present for 1-7 days Quality:itching; burning Severity:worsening Associated Symptoms:no vaginal itching; no vaginal irritation; no vaginal pain; no vulvar itching/irritation; no vulvar swelling/erythema; no vulvar pain; no vulvar lesions; no pelvic pain; no dyspareunia; no fever; no abdominal pain;dysuria PRESENTS W/ C/O EXTERNAL VAGINAL ITCHING AND URINE FREQUENCY FOR 1 WEEK JULIANE SIMEON APRN [address] [facility], [address] [place] [address], [place], [address], [facility] 09/11/2024 10:07:19 OBGyn Episode Ob Episode Information Episode Created Date Number of Fetuses Patient Bloodtype Patient rh Status Prepregnancy Weight lbs Domestic Partner Domestic Partner Phone Father Name Engineering Vice President Status 02/19/20 20 1 CLOSED Fetus Data First Name Last Name Admitted to NICU Weight (g) Sex Living Outcome Pediatric Complications Fetus ID Race Codes Race Delivery Type 4309.12 4 M Full Term [id number] Vaginal Delivery Oniel Calculation Initial Oniel Date Initial Exam Date Initial Exam Provider Initial Ultrasound Date Last Menstrual Period Date Ultra Sound Weeks Gestation 0 Eighteen To Twenty Week Oniel Update Ultra Sound Date Fundal Height At Umbil Quickening Date Ultra Sound Latest Weeks Gestation Final Oniel Confirmed By Final Oniel Confirmed Date Final Oniel Date Ultra Sound Latest Days Gestation 0 0 Menstrual History Last Menstrual Date Menses Monthly On Bcp Conception Prior Menses Frequency Hcg Plus Date Menarche Onset Age Delivery Information Delivery Date Delivery Type Labor Anesthesia Weeks Gestation Incision Type Labor Labor Length Hrs Delivered By Post Complications Tubal Sterilization Discharge Date Comments 5 None 38 Discharge Information Feeding Method Contraceptive Method Maternal HG B and HCT Levels Ob Episode Information Episode Created Date Number of Fetuses Patient Bloodtype Patient rh Status Prepregnancy Weight lbs Domestic Partner Domestic Partner Phone Father Name Engineering Vice President Status 02/19/20 20 1 CLOSED Fetus Data First Name Last Name Admitted to NICU Weight (g) Sex Living Outcome Pediatric Complications Fetus ID Race Codes Race Delivery Type 3175.14 4 F Full Term [id number] Vaginal Delivery Oniel Calculation Initial Oniel Date Initial Exam Date Initial Exam Provider Initial Ultrasound Date Last Menstrual Period Date Ultra Sound Weeks Gestation 0 Eighteen To Twenty Week Oniel Update Ultra Sound Date Fundal Height At Umbil Quickening Date Ultra Sound Latest Weeks Gestation Final Oniel Confirmed By Final Oniel Confirmed Date Final Oniel Date Ultra Sound Latest Days Gestation 0 0 Menstrual History Last Menstrual Date Menses Monthly On Bcp Conception Prior Menses Frequency Hcg Plus Date Menarche Onset Age Delivery Information Delivery Date Delivery Type Labor Anesthesia Weeks Gestation Incision Type Labor Labor Length Hrs Delivered By Post Complications Tubal Sterilization Discharge Date Comments 2 None 38 Discharge Information Feeding Method Contraceptive Method Maternal HG B and HCT Levels
--- OUTSIDE RECORDS SUMMARY | 2024-10-06 11:00 | XMS_ITS | Clinical Summary ---
Author Organization [facility] Address [address] [place] [address] Care Team Providers Care Senior Data Warehouse Developer Name Role Phone Frantz Ngo MD Primary Care Provider [phone] Allergies No known active allergies Medications Medication Sig Dispensed Refills Start Date End Date Status methotrexate 2.5 MG tablet Take 1 tablet (2.5 mg total) by mouth once a week. 7 tablets once a week 0 04/23/2019 Active folic acid (FOLVITE) tablet 1 mg Take 1 tablet (1 mg total) by mouth daily. 0 04/22/2019 Active Multiple Vitamin (MULTI VITAMIN DAILY PO) Take by mouth. 0 Active Acetaminophen (TYLENOL 8 HOUR PO) Take by mouth as needed. 0 Active Aspirin-Acetaminoph en-Caffeine (EXCEDRIN PO) Take by mouth as needed. 0 Active Pseudoephedrine HCl (SUDAFED 12 HOUR PO) Take by mouth as needed. 0 Active Ascorbic Acid (VITAMIN C PO) Take by mouth. 0 Active Multiple Vitamins-Minerals (ZINC PO) Take by mouth. 0 Active VITAMIN D, ERGOCALCIFEROL, PO Take 4,000 Units by mouth. 0 Active B Complex Vitamins (B COMPLEX PO) Take by mouth. 0 Active Hyrimoz 40 MG/0.4ML SOAJ once a week. 0 10/10/2023 Active meloxicam (MOBIC) 15 MG tablet Take 1 tablet (15 mg total) by mouth continuous prn for pain. 0 Active azithromycin (Zithromax Z-Lopez) 250 MG tablet Take 2 tablets (500 mg) on Day 1, followed by 1 tablet (250 mg) once daily on Days 2 through 5. 6 tablet 0 04/01/2024 Active Additional Information Patient not taking.Reason: Other, Reported on 04/06/2024 Zinc 50 MG TABS Take 50 mg by mouth daily. 0 Active atorvastatin (LIPITOR) tablet 10 mg TAKE 1 TABLET(10 MG) BY MOUTH DAILY Strength: 10 mg 90 tablet 0 05/25/2024 Active azithromycin (Zithromax Z-Lopez) 250 MG tablet Take 2 tablets (500 mg) on Day 1, followed by 1 tablet (250 mg) once daily on Days 2 through 5. 6 tablet 0 06/03/2024 Active Active Problems Problem Noted Date Diagnosed Date Flu vaccine need 03/22/2023 Injury of toe on right foot 03/22/2023 Last Assessment & Plan: Getting better Would defer xray unless she is not improving. ICE and rest Pain of left forearm 01/23/2023 Last Assessment & Plan: Likely tendonitis. Advised rest Can take meloxicam only as needed If not improving in 4 weeks please call back. BMI 27.0-27.9,adult 09/18/2022 Last Assessment & Plan: Advised to try loosing weight. Suspected sleep apnea 09/18/2022 Hematuria 09/18/2022 Chronic RLQ pain 09/18/2022 Last Assessment & Plan: She is not terribly bothered by this. We will get ultrasound of the abd and pelvis. ?adhesions Asymptomatic varicose veins of both lower extrem ities 09/18/2022 Last Assessment & Plan: Pt to consult vein specialist. Upper respiratory tract infection 09/06/2022 Last Assessment & Plan: Course of zpack Rest Hydrate Negative COVID and flu test COVID-19 07/11/2022 Last Assessment & Plan: Paxlovid Hold Lipitor while on paxlovid and for 5 days after Rest Hydrate Tylenol for fever and bodyaches She is considered immunocompromised. She is advised to quarantine for 10 days minimal. Hyponatremia 02/02/2022 Last Assessment & Plan: Repeat bmp in 1 week. Increase little bit of salt in diet. Vitamin D deficiency 08/10/2021 Last Assessment & Plan: Check vit. d Well adult exam 08/09/2020 Bilateral lower extremity edema 08/09/2020 Last Assessment & Plan: No edema appreciated on exam today. Advised compression stocking, elevating the legs and limiting salt intake. Advised to loose weight. Memory difficulties 08/09/2020 Last Assessment & Plan: Pt refused neuro consult BMI 30.0-30.9,adult 05/02/2020 Last Assessment & Plan: She is advised to try losing weight No signs and symptoms of sleep apnea Dizziness 05/02/2020 Last Assessment & Plan: Resolved BP running low Advised hydration Adjustment disorder 05/02/2020 Last Assessment & Plan: COVID related stress No red flags of depression Will continue to monitor. Dysuria 02/16/2020 Last Assessment & Plan: Normal urine dipstick Advised proper hydration Suprapubic discomfort 02/16/2020 Last Assessment & Plan: Resolved Likely UTI Will send UA and culture Follow up in the clinic if symptoms return. URI, acute 09/04/2019 Last Assessment & Plan: Likely viral Zpack if not better in next 3 days. Rest Hydration If not getting better in next 72 hours return to clinic Need for vaccination 07/15/2019 Last Assessment & Plan: Pneumonia 23 given today due to history of rheumatoid arthritis Annual physical exam 07/15/2019 Visit for screening mammogram 07/15/2019 Last Assessment & Plan: Due for mammogram Encounter for gynecological examination 07/15/19 20 Last Assessment & Plan: Due for Pap smear and mammogram Encounter for screening colonoscopy 07/15/2019 Last Assessment & Plan: Due for colonoscopy GI referral Palpitations 07/15/2019 Last Assessment & Plan: EKG is normal Will need Holter monitor, cardiology evaluation Cut down caffeine intake and Sudafed Hyperlipidemia 07/15/2019 Last Assessment & Plan: Due for lipid check Continue Lipitor Overweight (BMI 25.0-29.9) 07/15/2019 Last Assessment & Plan: Lost 2 pounds since last visit Stress 07/15/2019 Last Assessment & Plan: Meditation, exercise, yoga advised If stress/anxiety is interfering with work or home life patient to return to clinic RA (rheumatoid arthritis) 07/08/2004 Last Assessment & Plan: Managed by frame expander Resolved Problems Problem Noted Date Diagnosed Date Resolved Date 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 Pt reassured. Immunizations Name Administration Dates Next Due Adacel (Tdap) 05/08/2022 Covid-19 (Pfizer) Dilution Required 04/07,12/08/2021,09/28/2020,08/30 Influenza Quad (Flucelvax) 0 .5mL >6mon (ccIIV4) 03/22/2023,05/08/2022 Pneumococcal Polysaccharide PPSV23 07/15/2019 Family History Medical History Relation Name Comments Diabetes Father Heart attack Father Heart disease Father Breast cancer Maternal Cousin Heart disease Maternal Grandfather Alzheimer's disease Maternal Grandmother Bladder Cancer Mother Heart disease Mother Stroke Mother Heart disease Paternal Grandfather Prostate cancer Paternal Grandfather Cancer Paternal Grandmother Heart disease Paternal Grandmother Relation Name Status Comments Father Maternal Cousin Maternal Grandfather Maternal Grandmother Mother Alive Paternal Grandfather Paternal Grandmother Social History Tobacco Use Types Packs/Day Years Used Date Smoking Tobacco: Never Passive Smoke Exposure: Past Smokeless Tobacco: Never Tobacco Cessation:Counseling Given: Yes Alcohol Use Standard Drinks/Week Comments Yes 0 (1 standard drink = 0.6 oz pur e alcohol) SOCIALLY (WINE OR SHOTS) Sex and Gender Information Value Date Recorded Sex Assigned at Female 09/28/2020 9:50 AM EDT Gender Identity Not on file Sexual Orientation Not on file Job Start Date Occupation Industry Not on file Not on file Not on file Last Filed Vital Signs Vital Sign Reading Time Taken Comments Blood Pressure 114/72 06/03/2024 11:03 AM EST Pulse 91 06/03/2024 11:03 AM EST Temperature 36.3 ??C (97.3 ??F) 06/03/2024 11:[address] Respiratory Rate 14 09/04/2019 11:29 AM EST Oxygen Saturation 99% 06/03/2024 11:03 AM EST Inhaled Oxygen Concentration - - Weight 79.5 kg (175 lb 3.2 oz) 04/06/2024 2:00 P M EDT Height 165.1 cm (5' 5 ) 10/25/2023 10:44 AM EDT Body Mass Index 29.15 10/25/2023 10:44 AM EDT Plan of Treatment Health Maintenance Due Date Last Done Comments Hepatitis B Vaccines (1 of 3 - 3-dose series) 1965 Shingrix-Zoster Vaccine (1 of 2) 2014 BMI Counseling 08/09/2021 08/09/2020 Depression Screening 08/09/2021 08/09/2020 Cervical Cancer Screening (Pap Smear) 02/06/2024 02/05/2021 COVID-19 Vaccine ( season) 2024 04/24/2022, 12/08/2021, 05/22/2021, Additional history exists Influenza Vaccine (#1) 2024 , 05/08/2022, 04/20/2020 Preventative Health Evaluation 09/19/2024 09/20/2023, 09/18/2022, 08/10/2021, Additional history exists Breast Cancer Screening (Mammogram) 05/15/2025 05/15/2023, 05/14/2022, 05/11/2021, Additional history exists Colon Cancer Screening (Colonoscopy) 05/23/2025 05/23/2020 DTap / Tdap / Td (3 - Td or Tdap) 05/08/2032 05/08/2022, 08/09/2020 (Declined) Pneumococcal Vaccine Aged Out 07/15/2019 No long er eligible based on patient's age to complete this topic Hepatitis C Screening Completed 08/24/2020 RSV Ped < 20 months Aged Out No longe r eligible based on patient's age to complete this topic Procedures Procedure Name Priority Date/Time Associated Diagnosis Comments HEP B CORE AB, TOTAL, REFLEX IGM Routine 07/13/2024 2:09 PM EST FOLATE Routine 07/13/2024 2:05 PM EST Hyperlipidemia, unspecified hyperlipidemia type Rheumatoid arthritis, involving unspecified site, unspecified whether rheumatoid factor present (HCC) Vitamin D deficiency VITAMIN B12 Routine 07/13/2024 2:05 PM EST Hyperlipidemia, unspecified hyperlipidemia type Rheumatoid arthritis, involving unspecified site, unspecified whether rheumatoid factor present (HCC) Vitamin D deficiency 25-HYDROXY VITAMIN D Routine 07/13/2024 2:05 PM EST Hyperlipidemia, unspecified hyperlipidemia type Rheumatoid arthritis, involving unspecified site, unspecified whether rheumatoid factor present (HCC) Vitamin D deficiency LIPID PANEL WITH REFLEX TO DIRECT LDL Routine 07/13/2024 2:05 PM EST Hyperlipidemia, unspecified hyperlipidemia type Rheumatoid arthritis, involving unspecified site, unspecified whether rheumatoid factor present (HCC) Vitamin D deficiency COMPREHENSIVE METABOLIC PANEL RANDOM/FASTING Routine 07/13/2024 2:05 PM EST Hyperlipidemia, unspecified hyperlipidemia type Rheumatoid arthritis, involving unspecified site, unspecified whether rheumatoid factor present (HCC) Vitamin D deficiency CBC W/AUTO DIFFERENTIAL Routine 07/13/2024 2:05 PM EST Hyperlipidemia, unspecified hyperlipidemia type Rheumatoid arthritis, involving unspecified site, unspecified whether rheumatoid factor present (HCC) Vitamin D deficiency from Last 3 Months Results * Hep B Core AB, Total, Reflex IgM (07/13/2024 2:09 PM EST) HEPATITIS B CORE AB TOTAL NON-REACTI VE NON-REACTI VE [facility] Comment: For additional information, please refer to http://education.[employer].com.Protek-dor/faq/VVT532 (This link is being provided for informational/ educational purposes only.) 07/13/2024 2:09 PM EST 07/13/2024 2:14 PM EST Narrative [facility] - 07/14/2024 6:10 AM EST AN UPDATE OR CORRECTION HAS BEEN MADE TO NAME Resulting Agency Comment Performing Organization Information: ?Site ID: [id number] ?Name: [facility] ?Address: [address] [place] [phone] ?Director: Yrn Allred M.D. Frantz Ngo MD IMMUNOLOGY ORDERABLE S [facility] * Comprehensive Metabolic panel Random/Fasting (07/13/2024 2:05 PM EST) Glucose 91 65 - 99 mg/dL [facility] Comment: ? Fasting reference interval Urea Nitrogen (BUN) 16 7 - 25 mg/dL [facility] Creatinine, Serum 0.73 0.50 - 1.03 mg/dL [facility] EGFR 95 > OR = 60 mL/min/1. 73m2 [facility] BUN/Creatinine Ratio SEE NOTE: 6 - 22 (calc) [facility] Comment: ?? Not Reported: BUN and Creatinine are within ?? reference range. ? Sodium 138 135 - 146 mmol/L [facility] POTASSIUM 4.4 3.5 - 5.3 mmol/L [facility] Chloride 103 98 - 110 mmol/L [facility] Carbon Dioxide 26 20 - 32 mmol/L [facility] Calcium 9.9 8.6 - 10.4 mg/dL [facility] PROTEIN, TOTAL 7.1 6.1 - 8.1 g/dL [facility] ALBUMIN 4.5 3.6 - 5.1 g/dL [facility] GLOBULIN 2.6 1.9 - 3.7 g/dL (calc) [facility] Albumin/Globulin Ratio 1.7 1.0 - 2.5 (calc) [facility] Bilirubin, Total 0.7 0.2 - 1.2 mg/dL [facility] ALKALINE PHOSPHATASE 57 37 - 153 U/L [facility] AST 19 10 - 35 U/L [facility] ALT 17 6 - 29 U/L [facility] 07/13/2024 2:05 PM EST 07/13/2024 2:06 PM EST Narrative [facility] - 07/14/2024 7:06 AM EST FASTING:YES FASTING: YES Resulting Agency Comment Performing Organization Information: ?Site ID: [id number] ?Name: [facility] ?Address: [address] [place] [phone] ?Director: Yrn Allred M.D. Frantz Ngo MD LAB BLOOD ORDERABLES [facility] * CBC W/Auto Differential (07/13/2024 2:05 PM EST) White Blood Cell Count 9.2 3.8 - 10.8 Thousand/ uL [facility] Red Blood Cell Count 4.45 3.80 - 5.10 Million/u L [facility] Hemoglobin 13.5 11.7 - 15.5 g/dL [facility] Hematocrit 41.5 35.0 - 45.0 % [facility] MCV 93.3 80.0 - 100.0 fL [facility] MCH 30.3 27.0 - 33.0 pg [facility] MCHC 32.5 32.0 - 36.0 g/dL [facility] Comment: For adults, a slight decrease in the calculated MCHC value (in the range of 30 to 32 g/dL) is most likely not clinically significant; however, it should be interpreted with caution in correlation with other red cell parameters and the patient's clinical condition. RDW 12.5 11.0 - 15.0 % [facility] Platelet Count 243 140 - 400 Thousand/ uL [facility] MPV 12.4 7.5 - 12.5 fL [facility] Absolute Neutrophils 4,830 1,500 - 7,800 cells/uL [facility] Absolute Band Neutrophils CANCELED 0 - 750 cells/uL [facility] Comment:Result canceled by t he ancillary. Absolute Metamyelocytes CANCELED 0 cells/uL [facility] Comment:Result canceled by t he ancillary. Absolute Myeloctytes CANCELED 0 cells/uL [facility] Comment:Result canceled by t he ancillary. Absolute Promyelocytes CANCELED 0 cells/uL [facility] Comment:Result canceled by t he ancillary. Absolute Lymphocytes 3,680 850 - 3,900 cells/uL [facility] Absolute Monocytes 580 200 - 950 cells/uL [facility] Absolute Eosinophils 37 15 - 500 cells/uL [facility] Absolute Basophils 74 0 - 200 cells/uL [facility] Absolute Blasts CANCELED 0 cells/uL [facility] Comment:Result canceled by t he ancillary. Absolute Nucleated RBC CANCELED 0 cells/uL [facility] Comment:Result canceled by t he ancillary. Neutrophils 52.5 % [facility] Band Neutrophils CANCELED % [facility] Comment:Result canceled by t he ancillary. Metamyelocytes CANCELED % [facility] Comment:Result canceled by t he ancillary. Myelocytes CANCELED % [facility] Comment:Result canceled by t he ancillary. Promyelocytes CANCELED % [facility] Comment:Result canceled by t he ancillary. Lymphocytes 40.0 % [facility] Reactive Lymphocytes CANCELED 0 - 10 % [facility] Comment:Result canceled by t he ancillary. Monocytes 6.3 % [facility] Eosinophils 0.4 % [facility] Basophils 0.8 % [facility] Blasts CANCELED % [facility] Comment:Result canceled by t he ancillary. Nucleated RBC CANCELED 0 /100 WBC [facility] Comment:Result canceled by t he ancillary. Comment(s) CANCELED [facility] Comment:Result canceled by t he ancillary. 07/13/2024 2:05 PM EST 07/13/2024 2:06 PM EST Narrative [facility] - 07/14/2024 7:06 AM EST FASTING:YES FASTING: YES Resulting Agency Comment Performing Organization Information: ?Site ID: [id number] ?Name: [facility] ?Address: [address] [place] [phone] ?Director: Yrn Allred M.D. Frantz Ngo MD LAB BLOOD ORDERABLES [facility] * Vitamin B12 (07/13/2024 2:05 PM EST) [facility] VITAMIN B12 364 200 - 1,100 pg/mL [facility] Comment: Please Note: Although the reference range for vitamin B12 is 200-1100 pg/mL, it has been reported that between 5 and 10% of patients with values between 200 and 400 pg/mL may experience neuropsychiatric and hematologic abnormalities due to occult B12 deficiency; less than 1% of patients with values above 400 pg/mL will have symptoms. 07/13/2024 2:0 5 PM EST 07/13/2024 2:06 PM EST Narrative [facility] - 07/14/2024 7:06 AM EST FASTING:YES FASTING: YES Resulting Agency Comment Performing Organization Information: ?Site ID: [id number] ?Name: [facility] ?Address: [address] [place] [phone] ?Director: Yrn Allred M.D. Frantz Ngo MD LAB BLOOD ORDERABLES [facility] * Folate (07/13/2024 2:05 PM EST) FOLATE, SERUM 22.2 ng/mL [facility] Comment: ? Reference Range ? Low: ? <3.4 ? Borderline: ?3.4-5.4 ? Normal: ?>5.4 07/13/2024 2:05 PM EST 07/13/2024 2:06 PM EST Narrative [facility] - 07/14/2024 7:06 AM EST FASTING:YES FASTING: YES Resulting Agency Comment Performing Organization Information: ?Site ID: [id number] ?Name: [facility] ?Address: [address] [place] [phone] ?Director: Yrn Allred M.D. Frantz Ngo MD LAB BLOOD ORDERABLES Performing Organization Address City/[facility]/ZIP Co de Phone Number [facility] * 25-Hydroxy Vitamin D (07/13/2024 2:05 PM EST) Vitamin D,25-OH, Total 40 30 - 100 ng/mL [facility] Comment: Vitamin D Status ? 25-OH Vitamin D: Deficiency: ?<20 ng/mL Insufficiency: ? 20 - 29 ng/mL Optimal: ? > or = 30 ng/mL For 25-OH Vitamin D testing on patients on D2-supplementation and patients for whom quantitation of D2 and D3 fractions is required, the QuestAssureD(TM) 25-OH VIT D, (D2,D3), LC/MS/MS is recommended: order code 30888 (patients >2yrs). See Note 1 Note 1 For additional information, please refer to http://education.[employer]/faq/OZB859 (This link is being provided for informational/ educational purposes only.) 07/13/2024 2:05 PM EST 07/13/2024 2:06 PM EST Narrative [facility] - 07/14/2024 7:06 AM EST FASTING:YES FASTING: YES Resulting Agency Comment Performing Organization Information: ?Site ID: [id number] ?Name: [facility] ?Address: [address] [place] [phone] ?Director: Yrn Allred M.D. Frantz Ngo MD LAB BLOOD ORDERABLES [facility] * (ABNORMAL) Lipid Panel with Reflex to Direct LDL (07/13/2024 2:05 PM EST) Cholesterol, Total 209(H) <200 mg/dL [facility] HDL Cholesterol 80 > OR = 50 mg/dL [facility] Triglycerides 53 <150 mg/dL [facility] LDL-Cholesterol 115(H) mg/dL (calc) [facility] Comment: Reference range: <100 Desirable range <100 mg/dL for primary prevention; ?? <70 mg/dL for patients with CHD or diabetic patients with > or = 2 CHD risk factors. LDL-C is now calculated using the Hiren calculation, which is a validated novel method providing better accuracy than the Friedewald equation in the estimation of LDL-C. Yousif SS et al. TRUNG. 2013;310(19): 7734-6544 (http://education.[employer]/faq/XZG552) Chol/HDLC Ratio 2.6 <5.0 (calc) [facility] Non HDL Cholesterol 129 <130 mg/dL (calc) [facility] Comment: For patients with diabetes plus 1 major ASCVD risk factor, treating to a non-HDL-C goal of <100 mg/dL (LDL-C of <70 mg/dL) is considered a therapeutic option. 07/13/2024 2:05 PM EST 07/13/2024 2:06 PM EST Narrative [facility] - 07/14/2024 7:06 AM EST FASTING:YES FASTING: YES Resulting Agency Comment Performing Organization Information: ?Site ID: [id number] ?Name: [facility] ?Address: [address] [place] [phone] ?Director: Yrn Allred M.D. Frantz Ngo MD LAB BLOOD ORDERABLES [facility] from Last 3 Months Care Teams Senior Data Warehouse Developer Relationship Specialty Start Date End Date Frantz Ngo MD PCP - General Family Medicine 07/15/19
--- OUTSIDE RECORDS SUMMARY | 2024-10-06 11:00 | XMS_ITS | Data Portability ---
Author Organization [place] - [facility] ADMIN Address [address] [place] [address] Assessment No assessment recorded. Plan of Treatment Reminders Order Date Submit Date Provider Last Modified By Organization Details Last Modified Time Details Appointments PHYSICAL 30 2024 11:30A M Frantz Ngo MD Not available Not available Not available Lab CMP, serum or plasma 2024 025 [facility]R [facility] (Centralized Electronic Ordering - All Locations), Patient Can Go To The Location Of Their Choice, 09/18/2024 09:51:27 lipid panel, blood 2024 025 [facility] (Centralized Electronic Ordering - All Locations), Patient Can Go To The Location Of Their Choice, 09/18/2024 09:51:27 TSH + free T4, serum 2024 025 [facility] (Centralized Electronic Ordering - All Locations), Patient Can Go To The Location Of Their Choice, 09/18/2024 09:51:27 vitamin B12, serum 2024 025 [facility] (Centralized Electronic Ordering - All Locations), Patient Can Go To The Location Of Their Choice, 09/18/2024 09:51:26 Referral None recorded . Procedures None recorded . Surgeries None recorded . Imaging None recorded . Medication Orders None recorded . Patient TargetsNo targets recorded. Patient InstructionsNo instructions recorded. Reason for Referral None Reported. Problems Name Problem SNOMED Code Status Onset Date Resolution Date Notes Provider Name and Address Organization Details Recorded Time Vitamin B12 level below reference range 535536896 Active 2024 Frantz Ngo MD [address] [place], [address] , [place] - [facility] 5 09:48:53 Grief finding 306377619 Active 2024 Frantz Ngo MD [address] [place], [address] , [place] [facility] 5 10:01:13 Stress 11625410 Active 2019 Stress - Last Assessmen t & Plan: Formattin g of this note might be different from the original. Meditatio n, exercise, yoga advised If stress/an xiety is interferi ng with work or home life patient to return to clinic Not Available [facility] 4 22:09:23 Right lower quadrant pain 968335352 Active 2022 Chronic RLQ pain - Last Assessmen t & Plan: Formattin g of this note might be different from the original. She is not terribly bothered by this. We will get ultrasoun d of the abd and pelvis. ?adhesion s Not Available [facility] 4 22:09:23 Pain of left forearm 16677401786 9109 Active 2022 Pain of left forearm - Last Assessmen t & Plan: Formattin g of this note might be different from the original. Likely tendoniti s. Advised rest Can take meloxicam only as needed If not improving in 4 weeks please call back. Not Available [facility] 4 22:09:23 Hyponatre liz 28927263 Active 2021 Hyponatre liz - Last Assessmen t & Plan: Formattin g of this note might be different from the original. Repeat bmp in 1 week. Increase little bit of salt in diet. Not Available [facility] 4 22:09:23 Varicose veins of lower extremity 37945840 Active 2022 Asymptoma tic varicose veins of both lower extremiti es - Last Assessmen t & Plan: Formattin g of this note might be different from the original. Pt to consult vein specialis t. Not Available [facility] 4 22:09:24 Raul hematuria 084095576 Active 2019 Gross hematuria - Last Assessmen t & Plan: Formattin g of this note might be different from the original. Resolved Likely UTI Will send UA and culture Follow up in the clinic if symptoms return. Not Available [facility] 4 22:09:24 Vitamin D deficienc y 57244727 Active 2021 Vitamin D deficienc y - Last Assessmen t & Plan: Formattin g of this note might be different from the original. Check vitamin D Not Available [facility] 4 22:09:24 Injury of toe of right foot 45994713272 303169 Active 2022 Injury of toe on right foot - Last Assessmen t & Plan: Formattin g of this note might be different from the original. Getting better Would defer xray unless she is not improving . ICE and rest Not Available [facility] 4 22:09:24 Abdominal discomfor t 78780880 Active 2019 Suprapubi c discomfor t - Last Assessmen t & Plan: Formattin g of this note might be different from the original. Resolved Likely UTI Will send UA and culture Follow up in the clinic if symptoms return. Not Available [facility] 4 22:09:25 Adjustmen t disorder 39178002 Active 2019 Adjustmen t disorder - Last Assessmen t & Plan: Formattin g of this note might be different from the original. COVID related stress No red flags of depressio n Will continue to monitor. Not Available [facility] 4 22:09:25 Overweigh t in adulthood with body mass index of 25 or more but less than 30 349504610 Active 2022 BMI 27.0-27.9 ,adult - Last Assessmen t & Plan: Formattin g of this note might be different from the original. Advised to try loosing weight. Not Available [facility] 4 22:09:25 Memory impairmen t 483626312 Active 2020 Memory difficult ies - Last Assessmen t & Plan: Formattin g of this note might be different from the original. Pt refused neuro consult Not Available [facility] 4 22:09:25 Patient encounter status 138565967 Active 2019 Encounter for screening colonosco py - Last Assessmen t & Plan: Formattin g of this note might be different from the original. Due for colonosco py GI referral Visit for screening mammogram - Last Assessmen t & Plan: Formattin g of this note might be different from the original. Due for mammogram Annual physical exam [facility] unter for gynecolog ical examinati on - Last Assessmen t & Plan: Formattin g of this note might be different from the original. Due for Pap smear and mammogram Well adult exam Not Available [facility] 4 22:09:26 Vaccinati on needed 71628798339 9104 Active 2019 Need for vaccinati on - Last Assessmen t & Plan: Formattin g of this note might be different from the original. Pneumonia 23 given today due to history of rheumatoi d arthritis Not Available [facility] 4 22:09:26 Blood in urine 92793650 Active 2022 Hematuria Not Available [facility] 4 22:09:26 Rheumatoi d arthritis 10613448 Active 2004 RA (rheumato id arthritis ) - Last Assessmen t & Plan: Formattin g of this note might be different from the original. Managed by rheumatol ogist Not Available [facility] 4 22:09:27 Upper respirato ry infection 44955005 Active 2022 Upper respirato ry tract infection - Last Assessmen t & Plan: Formattin g of this note might be different from the original. Covid and flu negative Course of zpack Rest Hydrate Not Available [facility] 4 22:09:27 Needs influenza immunizat ion 936302770 Active 2022 Flu vaccine need Not Available [facility] 4 22:09:27 COVID-19 673844607 Active 2022 COVID-19 - Last Assessmen t & Plan: Formattin g of this note might be different from the original. Paxlovid Hold Lipitor while on paxlovid and for 5 days after Rest Hydrate Tylenol for fever and bodyaches She is considere d immunocom promised. She is advised to quarantin e for 10 days minimal. Not Available [facility] 4 22:09:27 Dizziness 525963203 Active 2019 Dizziness - Last Assessmen t & Plan: Formattin g of this note might be different from the original. Resolved BP running low Advised hydration Not Available [facility] 4 22:09:28 Acute upper respirato ry infection 39885386 Active 2019 URI, acute - Last Assessmen t & Plan: Formattin g of this note might be different from the original. Likely viral Zpack if not better in next 3 days. Rest Hydration If not getting better in next 72 hours return to clinic Not Available [facility] 4 22:09:28 Body mass index 30+ - obesity 419780941 Active 2019 BMI 30.0-30.9 ,adult - Last Assessmen t & Plan: Formattin g of this note might be different from the original. She is advised to try losing weight No signs and symptoms of sleep apnea Not Available [facility] 4 22:09:28 Body mass index 25-29 - overweigh t 385185850 Active 2019 Overweigh t (BMI 25.0-29.9 ) - Last Assessmen t & Plan: Formattin g of this note might be different from the original. Lost 2 pounds since last visit Not Available [facility] 4 22:09:29 Bilateral lower limb edema 034399203 Active 2020 Bilateral lower extremity edema - Last Assessmen t & Plan: Formattin g of this note might be different from the original. No edema appreciat ed on exam today. Advised compressi on stocking, elevating the legs and limiting salt intake. Advised to loose weight. Not Available [facility] 4 22:09:29 Disease suspected 00600359 Active 2022 Suspected sleep apnea Not Available [facility] 4 22:09:29 Hyperlipi demia 68638244 Active 2019 Hyperlipi demia - Last Assessmen t & Plan: Formattin g of this note might be different from the original. Due for lipid check Continue Lipitor Not Available [facility] 4 22:09:29 Palpitati ons 90168872 Active 2019 Palpitati ons - Last Assessmen t & Plan: Formattin g of this note might be different from the original. EKG is normal Will need Holter monitor, cardiolog y evaluatio n Cut down caffeine intake and Sudafed Not Available [facility] 4 22:09:30 Dysuria 13060578 Active 2019 Dysuria - Last Assessmen t & Plan: Formattin g of this note might be different from the original. Normal urine dipstick Advised proper hydration Not Available [facility] 4 22:09:31 Problem Notes None recorded. Medical Equipment None Reported. [...] MOUTH EVERY DAY DAYS 2 THROUGHT 5 09/18 completed Not Available Not Available Not Available meloxicam 15 mg tablet TAKE 1 TABLET DAILY WITH FOOD NEEDED active Not Available Not Available No t Available cyanocobala min (vit B-12) 1,000 mcg tablet Take 1 tablet every day by oral route. active Not Available Not Available No t Available amoxicillin 500 mg tablet TAKE 1 TABLET BY MOUTH THREE TIMES DAILY FOR 10 DAYS 09/18 completed Not Available Not Available Not Available zinc gluconate 30 mg tablet 10/24 completed Not Available Not Available Not Available methotrexat e sodium 2.5 mg tablet TAKE 7 TABLETS BY MOUTH ONCE PER WEK active Not Available Not Available No t Available benzonatate 100 mg capsule Take 2 capsules (200 mg total) by mouth 3 (three) times a day as needed for cough for up to 7 days. 07/02 completed Not Available Not Available Not Available zinc gluconate 50 mg tablet Take 50 mg by mouth daily. active Not Available Not Available No t Available folic acid 1 mg tablet TAKE 1 TABLET DAILY active Not Available Not Available No t Available ibuprofen 600 mg tablet TAKE 1 TABLET BY MOUTH EVERY 6 TO 8 HOURS NEEDED FOR PAIN 09/18 completed Not Available Not Available Not Available Vitamin C active Not Available Not Marleny ilable Not Available Vitamin D3 50 mcg (2,000 unit) tablet Take 1 tablet every day by oral route. active Not Available Not Available No t Available Humira(CF) Pen 40 mg/0.4 mL subcutaneou s kit 10/24 completed Not Available Not Available Not Available Hyrimoz(CF) Pen 40 mg/0.4 mL subcutaneou s pen injector once a week. active Not Available Not Available No t Available Vitals Date Recorded Body height Body temperature Body mass index (BMI) Body weight Heart rate Oxygen saturation Oxygen saturation in Arterial blood by Pulse oximetry Provider Name and Address Organization Details Last Updated DateTime 5 165.1 cm 97.1 [degF] 27.9 kg/m2 68943.3 6 g 65 /min 99 % 99 % Vinita Askew [facility] 5 09:36:47 Date Recorded Systolic blood pressure Diastolic blood pressure Provider Name and Address Organization Details Last Updated DateTime 09/18/2024 114 mm[Hg] 72 mm[Hg] Malini Arizmendi [facility] 09/18/2024 09:35:58 Social History None recorded. Functional Status None recorded. Mental Status None recorded. Family History Nothing Reported. Medical History No medical history recorded. Gynecological HistoryNo gynecological history recorded. Obstetrics History GPAL:G 0 P 0 0 0 0 Immunizations Vaccine Type Date Status Note Provider Nam e and Address Organization Details Recorded Time COVID-19, mRNA, LNP-S, PF, 30 mcg/0.3 mL dose 1 completed Not Available [facility] 06/11/2024 21:21:11 pneumococcal polysaccharide PPV23 0 completed Not Available [facility] 06/11/2024 21:21:11 COVID-19, mRNA, LNP-S, PF, 30 mcg/0.3 mL dose 2 completed Not Available [facility] 06/11/2024 21:21:11 COVID-19, mRNA, LNP-S, PF, 30 mcg/0.3 mL dose 1 completed Not Available [facility] 06/11/2024 21:21:11 Tdap 2 completed Not Available [facility] 06/11/2024 21:21:11 COVID-19, mRNA, LNP-S, PF, 30 mcg/0.3 mL dose 2 completed Not Available [facility] 06/11/2024 21:21:11 Influenza, MDCK, quadrivalent, PF 2 completed Not Available [facility] 06/11/2024 21:21:11 Influenza, MDCK, quadrivalent, PF 3 completed Not Available [facility] 06/11/2024 21:21:13 Past Encounters Encounter ID Performer Location Encounter Start Date Encounter Closed Date Diagnosis/Indication Diagnosis SNOMED-CT Code Diagnosis ICD10 Code Diagnosis Note [id number] Frantz Ngo MD [facility] [address] [facility] [address] [place] [address] 09/18/2024 09:17:00 09/18/2024 13:53:36 Hyperlipidemia 15866992 E78.5 Pt now taking lipitor 5 mg daily instead of every other day.Check lipids Rheumatoid arthritis 698 95235 M06.9 Managed by rheumattay costello Vitamin D deficiency 347 35020 E55.9 optimal vit. d Vitamin B1 2 level below reference range 140839233 R79.89 Vitamin B12 is low normal. Advised OTC B12 1000mcg daily. Grief finding 363045411 F43.21 Pt to consult therapist. Offered medication but she defferred. Health Concerns Section Related Observation LastModified by Organization Detai ls LastModified Time None Recorded Concern Status LastModified by Organization Details LastModified Time None Recorded Advance Directives Directive None Recorded Payers Encounter Date Sequence Insurance Name Policy Number Policy Levi Covered Member ID Levi Member ID Guarantor Name 09/18/2024 1 [place] [id number] Mark Jacobsen [id number] Brenda Jacobsen Notes Date Note Type Note Provider Name and Address Organization Details Recorded Time 09/18/2024 text/html Patient is here for a routine follow up. Has been stressed out. Step-father . Father in law and brother in law also . Frantz Ngo MD [address] [place], [address], [place] - [facility] 09/18/2024 10:02:05 OBGyn Episode No OBEpisode recorded.
--- OUTSIDE RECORDS SUMMARY | 2024-10-06 11:00 | XMS_ITS | Clinical Summary ---
Author Organization [facility] it Address [address] [place] [address] Care Team Providers Care Leasing Coordinator Name Role Phone Frantz Ngo MD Primary Care Provider [phone] Allergies No known active allergies Medications acetaminophen (TYLENOL 8 HOUR) 650 mg 8 hr tablet Take by mouth as needed. Active ASCORBIC ACID, VITAMIN C, ORAL Take by mouth. Active aspirin/acetami nophen/caffeine (EXCEDRIN MIGRAINE ORAL) Take by mouth as needed. Active atorvastatin (LIPITOR) 10 mg tablet Take 1 tablet (10 mg total) by mouth 1 (one) time each day. 4 Active azithromycin (ZITHROMAX) 250 mg tablet Take 2 tablets (500 mg) on Day 1, followed by 1 tablet (250 mg) once daily on Days 2 through 5. 4 Active vitamin B complex (B COMPLEX ORAL) Take by mouth. A ctive folic acid (FOLVITE) 1 mg tablet Take 1 tablet (1 mg total) by mouth 1 (one) time each day. 9 Active adalimumab-adaz (Hyrimoz,CF, Pen) 40 mg/0.4 mL pen once a week. 4 Active meloxicam (MOBIC) 15 mg tablet Take 1 tablet (15 mg total) by mouth continuous prn for pain. Active methotrexate 2.5 mg tablet Take 1 tablet (2.5 mg total) by mouth once a week. 7 tablets once a week 9 Active DAILY MULTI-VITAMIN ORAL Take by mouth. Activ e ZINC ORAL Take by mouth. Activ e pseudoephedrine (SUDAFED) 120 mg 12 hr tablet Take by mouth as needed. Active ERGOCALCIFEROL, VITAMIN D2, ORAL Take 4,000 Units by mouth. Active zinc gluconate 50 mg tablet Take 1 tablet (50 mg total) by mouth 1 (one) time each day. Active Active Problems Problem Noted Date Diagnosed Date Injury of toe on right foot 03/22/2023 Overview (06/15/2024): Last Assessment & Plan: Getting better Would defer xray unless she is not improving. ICE and rest Pain of left forearm 01/23/2023 Overview (06/15/2024): Last Assessment & Plan: Likely tendonitis. Advised rest Can take meloxicam only as needed If not improving in 4 weeks please call back. Asymptomatic varicose veins of both lower extrem ities 09/18/2022 Overview (06/15/2024): Last Assessment & Plan: Pt to consult vein specialist. Chronic RLQ pain 09/18/2022 Overview (06/15/2024): Last Assessment & Plan: She is not terribly bothered by this. We will get ultrasound of the abd and pelvis. ?adhesions Hematuria 09/18/2022 Suspected sleep apnea 09/18/2022 Upper respiratory tract infection 09/06/2022 Overview (06/15/2024): Last Assessment & Plan: Course of zpack Rest Hydrate Home covid test negative. COVID-19 07/11/2022 Overview (06/15/2024): Last Assessment & Plan: Paxlovid Hold Lipitor while on paxlovid and for 5 days after Rest Hydrate Tylenol for fever and bodyaches She is considered immunocompromised. She is advised to quarantine for 10 days minimal. Hyponatremia 02/02/2022 Overview (06/15/2024): Last Assessment & Plan: Repeat bmp in 1 week. Increase little bit of salt in diet. Vitamin D deficiency 08/10/2021 Overview (06/15/2024): Last Assessment & Plan: Check vit. d Bilateral lower extremity edema 08/09/2020 Overview (06/15/2024): Last Assessment & Plan: No edema appreciated on exam today. Advised compression stocking, elevating the legs and limiting salt intake. Advised to loose weight. Memory difficulties 08/09/2020 Overview (06/15/2024): Last Assessment & Plan: Pt refused neuro consult Adjustment disorder 05/02/2020 Overview (06/15/2024): Last Assessment & Plan: COVID related stress No red flags of depression Will continue to monitor. Dizziness 05/02/2020 Overview (06/15/2024): Last Assessment & Plan: Resolved BP running low Advised hydration Dysuria 02/16/2020 Overview (06/15/2024): Last Assessment & Plan: Normal urine dipstick Advised proper hydration Suprapubic discomfort 02/16/2020 Overview (06/15/2024): Last Assessment & Plan: Resolved Likely UTI Will send UA and culture Follow up in the clinic if symptoms return. URI, acute 09/04/2019 Overview (06/15/2024): Last Assessment & Plan: Likely viral Zpack if not better in next 3 days. Rest Hydration If not getting better in next 72 hours return to clinic Hyperlipidemia 07/15/2019 Overview (06/15/2024): Last Assessment & Plan: Due for lipid check Continue Lipitor Overweight (BMI 25.0-29.9) 07/15/2019 Overview (06/15/2024): Last Assessment & Plan: Lost 2 pounds since last visit Palpitations 07/15/2019 Overview (06/15/2024): Last Assessment & Plan: EKG is normal Will need Holter monitor, cardiology evaluation Cut down caffeine intake and Sudafed Stress 07/15/2019 Overview (06/15/2024): Last Assessment & Plan: Meditation, exercise, yoga advised If stress/anxiety is interfering with work or home life patient to return to clinic RA (rheumatoid arthritis) 07/08/2004 Overview (06/15/2024): Last Assessment & Plan: Managed by technical implementation lead Immunizations Name Administration Dates Next Due Influenza Quadravalent, MDCK , 0.5ml, preservative free (Flucelvax) 6mo and older 03/22/2023,05/08/2022 Pfizer SARS-CoV-2 COVID-19, mRNA, LNP-S, preservative free 05/22/2021 Pneumococcal polysaccharide 23 valent (Pneumovax 23) 2yo and older 07/15/2019 Tdap Tetanus diptheria acell ular pertussis (Boostrix; Adacel) 7yo and older 05/08/2022 Surgical History Surgery Date Site/Laterality Comments OVARIAN CYST REMOVAL PROCEDURE:OVARIAN CYST REMOVAL OTHER SURGICAL HISTORY Right PROCEDURE:right ovary removed BREAST CYST ASPIRATION 1995 Left PROCEDURE:BREAST CYST ASPIRATION Medical History Medical History Date Comments RA (rheumatoid arthritis) ([facility]) 2004 DX:RA (rheumatoid arthritis) ([facility]) Varicella DX:Varicella Hyperlipidemia DX:Hyperlipidemi a Left foot pain DX:Left foot kaleigh n Colon polyp DX:Colon polyp Family History Medical History Relation Name Comments [...] Packs/Day Years Used Date Smoking Tobacco: Never Smokeless Tobacco: Never Alcohol Use Standard Drinks/Week Comments Yes 0 (1 standard drink = 0.6 oz pur e alcohol) Comments Unknown Sex and Gender Information Value Date Recorded Sex Assigned at Not on file Legal Sex Female 7:46 PM EST Gender Identity Not on file Sexual Orientation Not on file Obstetrics History Last Filed Vital Signs Vital Sign Reading Time Taken Comments Blood Pressure 118/74 10/25/2023 10:44 AM EDT Pulse 67 10/25/2023 10:44 AM EDT Temperature - - Respiratory Rate - - Oxygen Saturation - - Inhaled Oxygen Concentration - - Weight 77.1 kg (170 lb) 10/25/2023 10:44 AM EDT Height 165.1 cm (5' 5 ) 10/25/2023 10:44 AM EDT Body Mass Index 28.29 10/25/2023 10:44 AM EDT Plan of Treatment Upcoming Encounters Date Type Department Care Team (Late st Contact Info) Description 10/19/2024 11:30 AM EDT Office Visit [facility] [address] [facility] [address] [place] [phone] Dejan Zhang MD [address] [facility] [address] [place], [place] [id number] Health Maintenance Due Date Last Done Comments Hepatitis B Vaccines (1 of 3 - 19+ 3-dose series) 10/12/1983 Zoster Vaccines (1 of 2) 2014 Pneumococcal Vaccine: 50+ Years (2 of 2 - PCV) 07/15/2020 07/15/2019 Depression Screening 06/14/2022 HIV Screening 06/14/2022 Social Influencers of Health Screening 06/14/2022 COVID-19 Vaccine ( season) 2024 04/24/2022, 12/08/2021, 05/22/2021, Additional history exists Influenza Vaccine (#1) 2024 03/22/2023, 2021 Breast Cancer Screening 05/15/2025 05/15/20 23, 05/14/2022, 05/11/2021, Additional history exists Colorectal Cancer Screening: Colonoscopy 05/23/2025 05/23/2020 Cervical Cancer Screening: HPV 04/04/2028 04/04/2023 Cholesterol Screening (Lipid Panel) 10/24/2028 10/25/2023 DTaP,Tdap,and Td Vaccines (2 - Td or Tdap) 05/08/2032 05/08/2022 RSV Immunization Patients 60+ Years Old (1 - 1-dose 75+ series) 10/12/2039 Pneumococcal Vaccine: Pediatrics (0 to 5 Years) and At-Risk Patients (6 to 64 Years) Aged Out 07/15/2019 No longer eligible based on patient's age to complete this topic Hepatitis C Screening Completed 08/24/2020 HIB Vaccines Aged Out No longer eligi ble based on patient's age to complete this topic HPV Vaccines Aged Out No longer eligi ble based on patient's age to complete this topic Hepatitis A Vaccines Aged Out No long er eligible based on patient's age to complete this topic IPV Vaccines Aged Out No longer eligi ble based on patient's age to complete this topic MMR Vaccines Aged Out No longer eligi ble based on patient's age to complete this topic Meningococcal ACWY Vaccine Aged Out N o longer eligible based on patient's age to complete this topic Meningococcal B Vacine Aged Out No lo nger eligible based on patient's age to complete this topic RSV Immunization Patients Under 20 months Aged Out No longer eligible based on patient's age to complete this topic Varicella Vaccines Aged Out No longer eligible based on patient's age to complete this topic Procedures Procedure Name Priority Date/Time Associated Diagnosis Comments LIPID PANEL Routine 10/25/2023 MAMMOGRAM SCREENING BILATERAL 3D BARBARA WITH CAD Routine 05/15/2023 11:53 AM EST Encounter for screening mammogram for malignant neoplasm of breast HPV Routine 04/04/2023 HEPATITIS C SCREENING Routine 08/24/2020 COLONOSCOPY Routine 05/23/2020 from Last 3 Months or Most Recently Relevant to Health Maintenance Results * Lipid panel (10/25/2023) LDL/HDL Ratio 2 <=5 Triglycerides 45 <=150 mg/dL Cholesterol 122 <=200 mg/dL HDL 53 >=50 mg/dL LDL Cholesterol 56 <=100 mg/dL Blood Venous blood specimen / Unknown us Historical Provider LAB BLOOD ORDERABLES Joselin l Result * MAMMOGRAM SCREENING BILATERAL 3D BARBARA WITH CAD (05/15/2023 11:53 AM EST) Anatomical Region Laterality Modality Mammography 04/04/2023 10:1 1 AM EDT Narrative 05/17/2023 2:33 PM EST This is a summary report. The complete report is available in the patient's medical record. If you cannot access the medical record, please contact the sending organization for a detailed fax or copy. SESSION: Separate. EXAMINATION: Bilateral digital mammograms with CAD and Tomosynthesis. TECHNIQUE: Bilateral full field digital mammography with synthesized (2D) the and Tomosynthesis (3-D) was performed using standard cc and MLO projections. Mammogram was interpreted in correlation with CAD and Tomosynthesis. INDICATION: Yearly screening. FINDINGS: Compared to 05/14/2022, 05/11/2021 and 02/19/2020. There are scattered areas of fibroglandular density. (Density B, 25% to less than 50%). There is no significant change in the appearance and distribution of benign fibroglandular as well as fibronodular densities in the both breasts. A few typically benign scattered calcifications are stable. No suspicious microcalcifications or masses are seen. CONCLUSION: Stable mammographic findings with no evidence of malignancy. RECOMMENDATION: Patient should continue with yearly screening mammography. NOTE: Patient has been informed about results of this screening mammogram, by a patient letter with 'plain language report'. BI-RADS Category 2: Benign findings. PQRI: 3342F. Report reviewed and signed by : Dr. Herb Hill MD on 05/17/2023 2:33 PM. Workstation Name - [email or web address] Procedure Note Herb Hill MD - 08/13/2023 This is a summary report. The complete report is available in thepatient's medical record. If you cannot access the medical record, pleasecontact the sending organization for a detailed fax or copy. SESSION: Separate. EXAMINATION: Bilateral digital mammograms with CAD and Tomosynthesis. TECHNIQUE: Bilateral full field digital mammography with synthesized (2D)the and Tomosynthesis (3-D) was performed using standard cc and MLOprojections. Mammogram was interpreted in correlation with CAD andTomosynthesis. INDICATION: Yearly screening. FINDINGS: Compared to 05/14/2022, 05/11/2021 and 02/19/2020. There are scattered areas of fibroglandular density. (Density B, 25% toless than 50%). There is no significant change in the appearance anddistribution of benign fibroglandular as well as fibronodular densities inthe both breasts. A few typically benign scattered calcifications are stable. No suspiciousmicrocalcifications or masses are seen. CONCLUSION: Stable mammographic findings with no evidence of malignancy. RECOMMENDATION: Patient should continue with yearly screening mammography. NOTE: Patient has been informed about results of this screening mammogram,by a patient letter with 'plain language report'. BI-RADS Category 2: Benign findings. PQRI: 3342F. Report reviewed and signed by : Dr. Herb Hill MD on 05/17/2023 2:33PM. Workstation Name - [facility] Juliane Crespo [employer] REPRESENTATIVE IMG BI PROCEDURES Final Res ult * Cervical Cancer Screening: HPV (04/04/2023) [facility] Cervical Cancer Screening: HPV no interpretation , abstracted [facility] Provider HEALTH MAINTENANCE Final Result * Hepatitis C Screening (08/24/2020) [facility] Hepatitis C Screening abstracted [facility] Provider HEALTH MAINTENANCE Final Result * Colonoscopy (05/23/2020) [facility] Colonoscopy no interpretation , abstracted Anatomical Region Laterality Modality Other [facility] Provider HEALTH MAINTENANCE Final Result from Last 3 Months or Most Recently Relevant to Health Maintenance Insurance [facility] Care Teams Leasing Coordinator Relationship Specialty Start Date End Date Frantz Ngo MD [address] [phone] PCP - General Family Medicine 07/15/19
== END 2024-10-06 10:42 | disposition home or self-care (01) ==
LOC: HO.RHES 09:39
PROVIDERS: Visit Provider Internal Medicine Rheumatology
DX: M06.9 Rheumatoid arthritis, unspecified (principal); Z79.899 Other long term (current) drug therapy; M70.61 Trochanteric bursitis, right hip; M70.62 Trochanteric bursitis, left hip; M25.551 Pain in right hip
CPT/HCPCS: 99214

== ENCOUNTER 2025-01-27 08:32 | Outpatient (REF) | payer BC, SELFPAY ==
[2025-01-27 13:33] LABS: Baso%MD 1.0 %; Eos%MD 1.0 %; Hematocrit 40.9 % (37.0-47.0); Hemoglobin 13.1 g/dl (12.0-16.0); IG%MD 0.3 %; Lymph%MD 36.4 %; Mean Corpuscular HGB Conc 32.0 g/dl (31.0-35.0); Mean Corpuscular Hemoglobin 29.7 pg (27.0-33.0); Mean Corpuscular Volume 92.7 fL (80.0-98.0); Mono%MD 7.6 %; NRBC Abs Auto 0.000 X10*3/uL (0.0-0.012); NRBC Pct Auto 0.0 /100WBC (0.0-0.2); Neut%MD 53.7 %; Platelet Count 185 X10*3/uL (160-400); Red Blood Count 4.41 X10*6/uL (4.20-5.50); White Blood Count 6.7 X10*3/uL (4.8-10.8)
[2025-01-27 13:42] LABS: Alanine Aminotransferase 22 U/L (0-31); Aspartate Amino Transferase 26 U/L (5-31); Estimated Glomerular Filt Rate > 60
[2025-01-27 14:31] LABS: Band Neutrophils Percent 0 % (3-5); Eosinophils Absolute Manual 0.1 X10*3/uL (0.0-0.4); Eosinophils Percent Manual 2 % (0-4); Lymphocytes Absolute Manual 2.1 X10*3/uL (1.2-4.9); Lymphocytes Percent Manual 31 % (20-40); Monocytes Absolute Manual 0.4 X10*3/uL (0.1-1.2); Monocytes Percent Manual 6 % (2-11); Neutrophils Absolute Manual 4.1 X10*3/uL (2.0-8.3); Neutrophils Percent Manual 61 % (45-73); RBC Morphology NORMAL
== END 2025-01-27 08:33 | disposition home or self-care (01) ==
LOC: HO.HKASLDS 08:32
PROVIDERS: Visit Provider Internal Medicine Rheumatology
DX: M06.09 Rheumatoid arthritis without rheumatoid factor, multiple sites (principal); M25.551 Pain in right hip; M70.61 Trochanteric bursitis, right hip; M70.62 Trochanteric bursitis, left hip; Z79.631 Long term (current) use of antimetabolite agent; Z79.899 Other long term (current) drug therapy
CPT/HCPCS: 36415; 82565; 84450; 84460; 85007; 85027; 85652; 86140

== ENCOUNTER 2025-01-27 08:32 | Outpatient (AMB) | payer BC, SELFPAY ==
--- NOTE | 2025-01-27 08:34 | MHC.OFFVIS ---
Vital Signs 01/27/25 08:39 Height 5 ft 6 in Weight 171 lb BMI 27.6 BP 130/80 Blood Pressure Location Lt brachial Position Sitting Pulse 71 Pulse Source Pulse Oximeter Pulse Oximetry (%) 99 Oxygen Delivery Method Room Air Intake Visit Reasons: follow up Intake Note: Patient presents for follow up on rheumatoid arthritis. Accompanied by: Self / Same As Patient Allergies No Known Allergies Allergy (Verified 01/27/25 08:39) HPI HPI follow up: Details: On enbrel since November. She had flu and bronchitis in October. She has laryngitis. Sick contact is grandson. SHe is having joint pain in elbows. Using meloxicam more frequently MS minutes PT helping hip pain. [facility] Medical History Bilateral bunions Bursitis of hip, right Rheumatoid aortitis Social History Alcohol intake: current Alcohol intake frequency: holidays/special occasions only Alcohol type: wine Patient Tobacco Use Status: Never used Tobacco Physical Exam Vital Signs: Last Vital Signs Pulse 71 01/27/25 08:39 BP 130/80 01/27/25 08:39 Pulse Ox 99 01/27/25 08:39 Oxygen Delivery Method Room Air 01/27/25 08:39 BMI result Body Mass Index 27.6 Const Other: General: Comfortable CVS: RRR Respiratory: clear to auscultation bilaterally. Good respiratory effort Skin: No lesions seen MSK: Nontender joints. She has volar subluxation right 2nd and 3rd MCP with bilateral ulnar deviation of MCPs. Normal range of motion of upper extremities and lower extremities. Bilateral trochanteric bursa tenderness found right greater than left. Assessment & Plan Assessment & Plan (1) Rheumatoid arthritis: Comment: She started enbrel 11/2024. Need more time for full benefit. Meloxicam more frequently and has been experiencing more polyarthralgias. I will treat her current symptoms with a prednisone course with hopes that she will use meloxicam less frequently in the future as Enbrel takes full effect. Rheumatology history: Diagnosed with rheumatoid arthritis early . Seronegative deforming. She was on methotrexate and Enbrel when diagnosed-06/2020. Enbrel change to Humira due to pain from extensive tenosynovitis of foot on MRI, which improved swelling and pain. Humira 07/2020-11/2024 (changed to Hyrimoz due to insurance requirement) - secondary treatment failure. Enrebl 11/2024-. 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 Code(s): M06.9 - Rheumatoid arthritis, unspecified Category: Medical Plan: Labs for drug monitoring on high-risk medication ordered. Continue enbrel 50mg SC weekly Continue methotrexate 17.5 mg once weekly Continue folic acid 1 mg daily Prednisone course prescribed. She would hold meloxicam while on prednisone. Okay to resume meloxicam 15 mg PRN joint pain after prednisone course is completed. I am requesting x-rays from [facility] Return to clinic in 3 months (2) Other residential (current) drug therapy: Code(s): Z79.899 - Other long chain quiller tender (current) drug therapy Category: Medical Plan: See above (3) Trochanteric bursitis of both hips: Comment: Improve pain with PT. Failed cortisone injections. She has completed PT with benefit. Code(s): M70.61 - Trochanteric bursitis, right hip; M70.62 - Trochanteric bursitis, left hip Category: Medical Plan: Continue home exercise program. She will inquire if she can do another course of PT as it provides benefit with her compliance with home exercise program. Return to clinic 3 months (4) Right hip pain: Code(s): M25.551 - Pain in right hip Category: Medical Plan: X-ray bilateral hips ordered. Left hip x-ray we will serve as baseline/comparison PT ordered for hip strengthening Return to clinic 3 months Orders: Orders Complete Blood Count Man Dif Today Z79.899 - Other long chain quiller tender (current) drug therapy Erythrocyte Sedimentation Rate Today Z79.899 - Other residential (current) drug therapy Alanine Aminotransferase Today Z79.899 - Other long chain quiller tender (current) drug therapy Aspartate Amino Transferase Today Z79.899 - Other residential (current) drug therapy Creatinine Today Z79.899 - Other long chain quiller tender (current) drug therapy C Reactive Protein Today Z79.899 - Other long chain quiller tender (current) drug therapy Medications: New prednisone Take 3 tablets daily 3 days, 2 tablets daily 3 days, 1 tablet daily 3 days then stop. Take prednisone with food. Hold meloxicam while on prednisone. 5 mg PO DIRECTED 18 tabs 0RF Coding Level of Care Code Est Pt Level 4 (31095) Complex EM visit Add On G2211 Diagnoses Rheumatoid arthritis M06.9 Other residential (current) drug therapy Z79.899 Trochanteric bursitis of both hips M70.61; M70.62 Right hip pain M25.551
[2025-01-27 08:39] VITALS: BP 130/80; PULSE 71; O2SAT 99; BMI 27.6
--- OUTSIDE RECORDS SUMMARY | 2025-01-27 08:48 | XMS_ITS ---
Author Name [facility] Organization Unknown History of Medication Use Medication Directions Dispensed Refills Start Date End Date Stat amoxicillin 875 mg-potassium clavulanate 125 mg tablet Take 1 tablet every 12 hours by oral route for 7 days. 10/12/2024 active benzonatate 200 mg capsule Take 1 capsule 3 times a day by oral route as needed for 7 days, for cough. 10/07/2024 active azithromycin (ZITHROMAX) 250 mg tablet Take 2 tablets (500 mg) on Day 1, followed by 1 tablet (250 mg) once daily on Days 2 through 5. 04/01/2024 active atorvastatin (LIPITOR) 10 mg tablet Take 0.5 tablets (5 mg total) by mouth 1 (one) time each day. 11/15/2023 active adalimumab-adaz (Hyrimoz,CF, Pen) 40 mg/0.4 mL pen once a week. 10/10/2023 active azithromycin (Zithromax Z-Lopez) 250 MG tablet Take 2 tablets (500 mg) on Day 1, followed by 1 tablet (250 mg) once daily on Days 2 through 5. 06/24/2023 4 aborted benzonatate 100 mg capsule Take 2 capsules (200 mg total) by mouth 3 (three) times a day as needed for cough for up to 7 days. 06/24/2023 3 completed atorvastatin (LIPITOR) tablet 10 mg TAKE 1 TABLET(10 MG) BY MOUTH DAILY 12/27/2022 active Humira(CF) Pen 40 mg/0.4 mL subcutaneous kit 07/12/2020 4 completed zinc gluconate 30 mg tablet 09/06/2019 4 completed Zinc 30 MG TABS 09/06/2019 4 aborted methotrexate 2.5 mg tablet Take 1 tablet (2.5 mg total) by mouth once a week. 7 tablets once a week 04/23/2019 active folic acid (FOLVITE) 1 mg tablet Take 1 tablet (1 mg total) by mouth 1 (one) time each day. 04/22/2019 active amoxicillin 500 mg tablet TAKE 1 TABLET BY MOUTH THREE TIMES DAILY FOR 10 DAYS 5 completed azithromycin 250 mg tablet TAKE 2 TABLETS BY MOUTH ON DAY 1 THEN 1 TABLET BY MOUTH EVERY DAY DAYS 2 THROUGHT 5 5 completed ibuprofen 600 mg tablet TAKE 1 TABLET BY MOUTH EVERY 6 TO 8 HOURS NEEDED FOR PAIN 5 completed azithromycin 250 mg tablet TAKE 2 TABLETS BY MOUTH ON DAY 1 THEN 1 TABLET BY MOUTH EVERY DAY DAYS 2 THROUGHT 5 4 completed Humira(CF) Pen 40 mg/0.4 mL subcutaneous kit 4 completed yptwkuml-ynybcgqub-dt xameth 3.5 mg/mL-10,000 unit/mL-0.1% eye drops 4 completed prednisone 5 mg tablet TAKE 3 TABLETS BY MOUTH EVERY DAY FOR 7 DAYS THEN TAKE 2 TABLETS BY MOUTH EVERY DAY FOR 7 DAYS THEN TAKE 1 TABLET BY MOUTH EVERY DAY FOR 7 DAYS 3 completed Enbrel SureClick 50 mg/mL (1 mL) subcutaneous pen injector 1 completed benzonatate 200 mg capsule active amoxicillin 875 mg-potassium clavulanate 125 mg tablet active atorvastatin 10 mg tablet TAKE 1/2 TABLET DAILY active cyanocobalamin (vit B-12) 1,000 mcg tablet Take 1 tablet every day by oral route. active folic acid 1 mg tablet TAKE 1 TABLET DAILY active Hyrimoz(CF) Pen 40 mg/0.4 mL subcutaneous pen injector once a week. active meloxicam 15 mg tablet TAKE 1 TABLET DAILY WITH FOOD NEEDED active methotrexate sodium 2.5 mg tablet TAKE 7 TABLETS BY MOUTH ONCE PER WEK active methotrexate sodium 2.5 mg tablet TAKE 7 TABLETS BY MOUTH ONCE PER WEK active oseltamivir 75 mg capsule TAKE 1 CAPSULE BY MOUTH TWICE DAILY FOR 5 DAYS active Vitamin C active Vitamin D3 50 mcg (2,000 unit) tablet Take 1 tablet every day by oral route. active zinc gluconate 50 mg tablet Take 50 mg by mouth daily. active acetaminophen (TYLENOL 8 HOUR) 650 mg 8 hr tablet Take by mouth as needed. active ERGOCALCIFEROL, VITAMIN D2, ORAL Take 4,000 Units by mouth. active etanercept (ENBREL) 25 mg/0.5 mL (0.5) injection Inject 0.5 mL (25 mg total) under the skin 1 (one) time per week. active folic acid 1 mg tablet folic acid 1 mg tablet completed Humira(CF) Pen 40 mg/0.4 mL subcutaneous kit Humira(CF) Pen 40 mg/0.4 mL subcutaneous kit completed meloxicam (MOBIC) 15 mg tablet Take 1 tablet (15 mg total) by mouth continuous prn for pain. active meloxicam (MOBIC) 15 MG tablet Take 1 tablet (15 mg total) by mouth continuous prn for pain. active pseudoephedrine (SUDAFED) 120 mg 12 hr tablet Take by mouth as needed. active zinc gluconate 50 mg tablet Take 1 tablet (50 mg total) by mouth 1 (one) time each day. active ZINC ORAL Take by mouth. active Problems Problem Status Onset Date Problem Type Date of Resolution Source Encounter for screening colonoscopy active ProblemAct [facility] Upper respiratory tract infection active ProblemAct [facility] BMI 27.0-27.9,adult active ProblemAct [facility] Suprapubic discomfort active ProblemAct [facility] Hyponatremia active ProblemAct [facility] Chronic RLQ pain active ProblemAct [facility] Pain of left forearm active ProblemAct [facility] Palpitations active ProblemAct [facility] Vitamin D deficiency active ProblemAct [facility] Dysuria active ProblemAct [facility] Hematuria active ProblemAct [facility] Suspected sleep apnea active ProblemAct [facility] History of palpitations active EncounterDiagnos isAct [facility]NEM[facility] Asymptomatic varicose veins of both lower extremities active ProblemAct [facility] Adjustment disorder active ProblemAct [facility] BMI 30.0-30.9,adult active ProblemAct [facility] Hyperlipidemia active ProblemAct [facility] Flu vaccine need active ProblemAct [facility] Bilateral lower extremity edema active ProblemAct [facility] Mixed hyperlipidemia active EncounterDiagnosisA ct [facility] Gross hematuria active ProblemAct [facility] Memory difficulties active ProblemAct [facility] Injury of toe on right foot active ProblemAct [facility] Overweight (BMI 25.0-29.9) active ProblemAct [facility] Stress active ProblemAct [facility] Venous insufficiency active EncounterDiagnosisA ct [facility] RA (rheumatoid arthritis) (CMS/HCC V24, CMS/HCC V28) active ProblemAct [facility] COVID-19 active ProblemAct [facility] Visit for screening mammogram active ProblemAct [facility] Dizziness active ProblemAct [facility] Acute upper respiratory infection active ProblemAct [facility] Dizziness active ProblemAct [facility] Influenza active ProblemAct [facility] COVID-19 active ProblemAct [facility] Needs influenza immunization active ProblemAct [facility] Adjustment disorder active ProblemAct [facility] Abdominal discomfort active ProblemAct [facility] Viral upper respiratory tract infection active ProblemAct [facility] Grief finding active ProblemAct [facility] Acute right otitis media active 2024-10 ProblemAct [facility] Overweight in adulthood with body mass index of 25 or more but less than 30 active ProblemAct [facility] Pain of left forearm active ProblemAct [facility] Dysuria active ProblemAct [facility] Loss of sense of smell active ProblemAct [facility] Right lower quadrant pain active ProblemAct [facility] Acute secretory otitis media active ProblemAct [facility] Raul hematuria active ProblemAct [facility] Memory impairment active ProblemAct [facility] Palpitations active ProblemAct [facility] Varicose veins of lower extremity active ProblemAct [facility] Bilateral lower limb edema active ProblemAct [facility] Stress active ProblemAct [facility] Acute otitis media of right ear with effusion active ProblemAct [facility] Disease suspected active ProblemAct [facility] Vaccination needed active ProblemAct [facility] Hyponatremia active ProblemAct [facility] Body mass index 30+ - obesity active ProblemAct [facility] Sore throat active ProblemAct [facility] Injury of toe of right foot active ProblemAct [facility] Vitamin B12 level below reference range active ProblemAct [facility] Body mass index 25-29 - overweight active ProblemAct [facility] Hypercholesterolemia active ProblemAct [facility] Rheumatoid arthritis active ProblemAct [facility] Immunizations Vaccine Date Source Lot Number Status zoster vaccine subunit [facility]/03[id number] Influenza Quadravalent, MDCK , 0.5ml, preservative free (Flucelvax) 6mo and older 03/22/2023 [facility] [id number] completed Influenza Quadravalent, MDCK , 0.5ml, preservative free (Flucelvax) 6mo and older 05/08/2022 [facility] [id number] completed Tdap Tetanus diptheria acell ular pertussis (Boostrix; Adacel) 7yo and older 05/08/2022 [facility] [id number] completed SARS-COV-2 (COVID-19) vaccin e, mRNA, spike protein, LNP, preservative free, 30 mcg/0.3mL dose 04/24/2022 [facility] [id number] completed SARS-COV-2 (COVID-19) vaccin e, mRNA, spike protein, LNP, preservative free, 30 mcg/0.3mL dose 12/08/2021 [facility] [id number] completed [facility] SARS-CoV-2 COVID-19, mRNA, LNP-S, preservative free 05/22/2021 [facility] [id number] completed SARS-COV-2 (COVID-19) vaccin e, mRNA, spike protein, LNP, preservative free, 30 mcg/0.3mL dose 09/28/2020 [facility] [id number] completed SARS-COV-2 (COVID-19) vaccin e, mRNA, spike protein, LNP, preservative free, 30 mcg/0.3mL dose 08/30/2020 [facility] [id number] completed Pneumococcal polysaccharide 23 valent (Pneumovax 23) 2yo and older 07/15/2019 [facility] [id number] com pleted Encounters Encounter Type Encounter Reason Primary Diagnosis Location Date Ambulatory Follow-up Palpitations [facility] 01/04/2025 Ambulatory [facility] 10/29/2024 Ambulatory [facility] 10/12/2024 Ambulatory [facility] 10/07/2024 Ambulatory [facility] 10/07/2024 [facility]ulatory [facility] 10/06/2024 [facility]ulatory [facility] 09/18/2024 Ambulatory Encntr for filter screen cleaner exam (general) (routine) w/o abn findings Encntr for filter screen cleaner exam (general) (routine) w/o abn findings [facility] 09/11/2024 Ambulatory [facility] 09/02/2024 [facility]ulatory [facility] 09/02/2024 Ambulatory Encntr for filter screen cleaner exam (general) (routine) w abnormal findings Encntr for filter screen cleaner exam (general) (routine) w abnormal findings [facility] 04/10/2024 Ambulatory Encntr for filter screen cleaner exam (general) (routine) w/o abn findings [facility] 04/03/2023 Ambulatory [facility] 03/30/2022 Care Team Organization Name Specialty Phone Email [facility] 09/16/2024 [facility] FACUNDO HANKINS Primary Care 06/19/202302/23 [facility] 05/09/2023 024 [facility] 03/29/2023 024 [facility] FACUNDO HANKINS Primary Care 05/15/202202/23 [facility] 04/04/2022 [facility] 02/21/2021 03/30/2022
--- OUTSIDE RECORDS SUMMARY | 2025-01-27 08:49 | XMS_ITS | Clinical Summary ---
Author Organization [facility] Computer Support Technician [place] Address [address] [place] [address] Phone Care Team Providers Care Instrument Processing Tech Name Role Phone Frantz Ngo MD Primary Care Provider [phone] Allergies No known active allergies Medications acetaminophen (TYLENOL 8 HOUR) 650 mg 8 hr tablet Take by mouth as needed. Active ASCORBIC ACID, VITAMIN C, ORAL Take by mouth. Active aspirin/acetami nophen/caffeine (EXCEDRIN MIGRAINE ORAL) Take by mouth as needed. Active atorvastatin (LIPITOR) 10 mg tablet Take 0.5 [...] mouth 1 (one) time each day. Active etanercept (ENBREL) 25 mg/0.5 mL (0.5) injection Inject 0.5 mL (25 mg total) under the skin 1 (one) time per week. Active Active Problems Problem Noted Date Diagnosed [...] to return to clinic RA (rheumatoid arthritis) ([facility] V24, [facility] V28) 07/08/2004 Overview (06/15/2024): Last Assessment & Plan: Managed by extension forester Encounters Date Type Department Care Team Description 01/04/2025 9:45 AM EDT Office Visit [facility] Cardiology - [place] [address] [place] [phone] Dejan Zhang MD Palpitations (Primary Dx); Asymptomatic varicose veins of both lower extremities; Mixed hyperlipidemia from Last 3 Months Immunizations Name Administration Dates Next Due Influenza [...] Medical History Date Comments RA (rheumatoid arthritis) ([facility] [place] V24, [facility] V28) 2004 DX:RA (rheumatoid arthritis) ([facility]) Varicella DX:Varicella Hyperlipidemia DX:Hyperlipidemi a [...] Date Smoking Tobacco: Never Smokeless Tobacco: Never Tobacco Cessation:Counseling Given: Not Answered Alcohol Use Standard Drinks/Week Comments Yes 0 (1 standard drink = 0.6 oz pur e alcohol) Comments Unknown Sex and Gender Information Value Date Recorded Sex Assigned at Not on file Legal Sex Female 7:46 PM EST Gender Identity Not on file Sexual Orientation Not on file Obstetrics History Last Filed Vital Signs Vital Sign Reading Time Taken Comments Blood Pressure 122/78 01/04/2025 10:01 AM EDT Pulse 67 01/04/2025 10:01 AM EDT Temperature - - Respiratory Rate - - Oxygen Saturation 99% 01/04/2025 10:01 AM EDT Inhaled Oxygen Concentration - - Weight 79.8 kg (176 lb) 01/04/2025 10:01 AM EDT Height 165.1 cm (5' 5 ) 01/04/2025 10:01 AM EDT Body Mass Index 29.29 01/04/2025 10:01 AM EDT Plan of Treatment Upcoming Encounters Date Type Department Care Team (Late st Contact Info) Description 01/10/2026 9:00 AM EDT Office Visit [facility] Cardiology - [place] [address] [phone] Dejan Zhang MD [address] [facility] [address] [place] [address] Health Maintenance Due Date Last Done Comments Pneumococcal Vaccine: 50+ Years (2 of 2 - PCV) 07/15/2020 07/15/2019 HIV Screening 06/14/2022 Social Influencers of Health Screening 06/14/2022 COVID-19 Vaccine ( season) 2024 04/24/2022, 12/08/2021, 05/22/2021, Additional history exists Depression Screening 07/08/2024 Zoster Vaccines (2 of 2) 08/28/2024 07/03/2024 Influenza Vaccine (#1) 2025 03/22/2023, 2021 Breast Cancer Screening 05/15/2025 05/15/20 23, 05/14/2022, 05/11/2021, Additional history exists Colorectal Cancer Screening: Colonoscopy 05/23/2025 05/23/2020 Cervical Cancer Screening: HPV 04/04/2028 04/04/2023 Cholesterol Screening (Lipid Panel) 10/24/2028 10/25/2023 DTaP,Tdap,and Td Vaccines (2 - Td or Tdap) 05/08/2032 05/08/2022 RSV Immunization Adult Patients (1 - 1-dose 75+ series) 10/12/2039 Hepatitis C Screening Completed 08/24/2020 HIB Vaccines Aged Out No longer eligi ble based on patient's age to complete this topic HPV Vaccines Aged Out No longer eligi ble based on patient's age to complete this topic Hepatitis A Vaccines Aged Out No long er eligible based on patient's age to complete this topic Hepatitis B Vaccines Aged Out No long er eligible [...] age to complete this topic Meningococcal B Vaccine Aged Out No l onger eligible based on patient's age to complete [...] blood specimen / Unknown us Historical Provider MD LAB BLOOD ORDERABLES Joselin l Result * [...] on 05/17/2023 2:33 PM. Workstation Name - [id number] Procedure Note Herb Hill MD - 08/13/2023 [...] MD on 05/17/2023 2:33PM. Workstation Name - [id number] Juliane Simeon PROFESSOR OF HISTORICAL THEOLOGY IMG BI PROCEDURES Final Re sult * Cervical Cancer Screening: HPV (04/04/2023) Pathologist [facility] Cervical Cancer Screening: HPV no interpretation , abstracted Historical Provider [facility] Final Result * Hepatitis C Screening (08/24/2020) Pathologist [facility] Hepatitis C Screening abstracted Historical Provider HEALTH MAINTENANCE Final Result * Colonoscopy (05/23/2020) Colonoscopy no interpretation , abstracted Anatomical Region Laterality Modality Other Historical Provider HEALTH MAINTENANCE Final Result from Last 3 Months or Most Recently Relevant to Health Maintenance Insurance Care Teams Instrument Processing Tech Relationship Specialty Start Date End Date Frantz Ngo MD PCP - General Family Medicine 07/15/19
--- OUTSIDE RECORDS SUMMARY | 2025-01-27 08:49 | XMS_ITS | Clinical Summary ---
Author Organization [facility] Address [address] [place] [id number] Care Team Providers Care Roving Hauler Name Role Phone Unavailable Primary Care Provider Unavailabl e Social History Tobacco Use Types Packs/Day Years Used Date Smoking Tobacco: Never Assessed Comments Unknown Sex and Gender Information Value Date Recorded Sex Assigned at Female 03/26/2023 9:44 PM EDT Legal Sex Female 9:41 PM EDT Gender Identity Not on file Sexual Orientation Heterosexual (straight) 03/26 9:44 PM EDT Plan of Treatment Health Maintenance Due Date Last Done Comments Hepatitis C Virus Screening 1964 HIV Screening 1977 DTaP/Tdap/Td Vaccines (1 - Tdap) 10/12/1983 Pneumococcal Vaccines 50+ (1 of 1 - PCV) 2014 Zoster (Shingles) Vaccine (1 of 2) 2014 COVID-19 Vaccine ( - 2023-2 5 season) 2024 RSV Vaccine 60 years and old er and Patients (1 - 1-dose 75+ series) 10/12/2039 Hepatitis B Vaccines Aged Out No long er eligible based on patient's age to complete this topic
--- OUTSIDE RECORDS SUMMARY | 2025-01-27 08:49 | XMS_ITS | Clinical Summary ---
Author Organization [facility] Address [address] [place] [address] Care Team Providers Care Parts Room Assistant Name Role Phone Frantz Ngo MD Primary Care Provider [phone] Allergies No known active allergies Medications Medication [...] 07/08/2004 Last Assessment & Plan: Managed by chainstitch seat joiner Resolved Problems Problem Noted Date Diagnosed Date [...] 91 06/03/2024 11:03 AM EST Temperature 36.3 C (97.3 F) 06/03/2024 11:03 AM EST Respiratory Rate 14 09/04/2019 11:29 AM EST Oxygen Saturation 99% 06/03/2024 11:03 AM EST Inhaled Oxygen Concentration - - Weight 79.5 kg (175 lb 3.2 oz) 04/06/2024 2:00 P M EDT Height 165.1 cm (5' 5 ) 10/25/2023 10:44 AM EDT Body Mass Index 29.15 10/25/2023 10:44 AM EDT Plan of Treatment Health Maintenance Due Date Last Done Comments Shingrix-Zoster Vaccine (1 of 2) 2014 BMI Counseling 08/09/2021 08/09/2020 Depression Screening 08/09/2021 08/09/2020 Cervical Cancer Screening (Pap Smear) 02/06/2024 02/05/2021 COVID-19 Vaccine ( season) 2024 04/24/2022, 12/08/2021, 05/22/2021, Additional history exists Preventative Health Evaluation 09/19/2024 09/20/2023, 09/18/2022, 08/10/2021, Additional history exists Influenza Vaccine (#1) 2025 , 05/08/2022, 04/20/2020 Breast Cancer Screening (Mammogram) 05/15/2025 05/15/2023, 05/14/2022, 05/11/2021, Additional history exists Colon Cancer Screening (Colonoscopy) 05/23/2025 05/23/2020 DTap / Tdap / Td (3 - Td or Tdap) 05/08/2032 05/08/2022, 08/09/2020 (Declined) RSV Adult > 60+ Yrs or (1 - 1-dose 75+ series) 10/12/2039 Pneumococcal Vaccine Aged Out 07/15/2019 No long er eligible based on patient's age to complete this topic Hepatitis C Screening Completed 08/24/2020 Hepatitis B Vaccines Aged Out No long er eligible based on patient's age to complete this topic RSV Ped < 20 months Aged Out No longe r eligible based on patient's age to complete this topic Care Teams Parts Room Assistant Relationship Specialty Start Date End Date Frantz Ngo MD PCP - General Family Medicine 07/15/19
== END 2025-01-27 09:06 | disposition home or self-care (01) ==
LOC: HO.RHES 08:33
PROVIDERS: Visit Provider Internal Medicine Rheumatology
DX: M06.9 Rheumatoid arthritis, unspecified (principal); Z79.899 Other long term (current) drug therapy; M70.61 Trochanteric bursitis, right hip; M70.62 Trochanteric bursitis, left hip; M25.551 Pain in right hip
CPT/HCPCS: 99214

== ENCOUNTER 2025-05-11 08:44 | Outpatient (AMB) | payer BC, SELFPAY ==
--- OUTSIDE RECORDS SUMMARY | 2019-03-25 04:15 | XMS_ITS | Continuity of Care Document ---
Author Organization [facility] Rheum atology Osteoporosis Address [address] [facility] [address] [place] [phone] Phone Care Team Providers Care Estimator Printing Plate Making Name Role Phone Marco Jim MD Unavailable Unavailable Allergies, Adverse Reactions, Alerts Substance Reaction Status Criticality No Known Allergies Active No Inform ation Medications Medication Instructions Dosage Effective Dates (start - stop) Status Comments methotrexate sodium 2.5 mg tablet take 6 tablet by oral route every week 15 MG - Active folic acid 1 mg tablet take 1 tablet by oral route every day 1 MG - Active Enbrel SureClick 50 mg/mL (0.98 mL) subcutaneous pen injector inject 1 milliliter by subcutaneous route every week 50 MG - Active methotrexate sodium 2.5 mg tablet take 6 tablet by oral route every week 15 MG - No Longer Active folic acid 1 mg tablet take 1 tablet by oral route every day 1 MG - No Longer Active Procedures Procedure Date Office/Outpatient Visit, Est Office/Outpatient Visit, Est X-Ray Exam L-S Spine, 2 Views 9 Xray Hip W/Pelvis, Bilateral, 2 Views Ju Office/Outpatient Visit, Est Office/Outpatient Visit, Est Results Test Name Date and Time Measure Units Reference Range Abnormal Flag Status Comments Panel Description: CBC With Differential/Platele t Final WBC 02:10:00 5.6 x10E3/uL 3.4-10.8 Final RBC 02:10:00 4.37 x10E6/uL 3.77-5.28 Final Hemoglobin 02:10:00 13.0 g/dL 11.1-15.9 Final Hematocrit 02:10:00 38.9 % 34.0-46.6 Final MCV 02:10:00 89 fL 79-97 Final MCH 02:10:00 29.7 pg 26.6-33.0 Final MCHC 02:10:00 33.4 g/dL 31.5-35.7 Final RDW 02:10:00 14.5 % 12.3-15.4 Final Platelets 02:10:00 218 x10E3/uL 150-450 Final Neutrophils 02:10:00 50 % Not Estab. Final Lymphs 02:10:00 38 % Not Estab. Final Monocytes 02:10:00 10 % Not Estab. Final Eos 02:10:00 1 % Not Estab. Final Basos 02:10:00 1 % Not Estab. Final Immature Cells 02:10:00 Final Neutrophils (Absolute) 02:10:00 2.8 x10E3/uL 1.4-7.0 Final Lymphs (Absolute) 02:10:00 2.1 x10E3/uL 0.7-3.1 Final Monocytes(Absolute ) 02:10:00 0.5 x10E3/uL 0.1-0.9 Final Eos (Absolute) 02:10:00 0.1 x10E3/uL 0.0-0.4 Final Baso (Absolute) 02:10:00 0.1 x10E3/uL 0.0-0.2 Final Immature Granulocytes 02:10:00 0 % Not Estab. Final Immature Grans (Abs) 02:10:00 0.0 x10E3/uL 0.0-0.1 Final NRBC 02:10:00 Final Hematology Comments: 02:10:00 Final Panel Description: Comp. Metabolic Panel (14) F inal Glucose Mar- 03:28:00 98 mg/dL 65-99 Final BUN Mar- 03:28:00 24 mg/dL 6-24 Final Creatinine Mar- 03:28:00 0.72 mg/dL 0.57-1.00 Final eGFR If NonAfricn Am Mar- 03:28:00 95 mL/min/1. 73 >59 Final eGFR If Africn Am Mar- 03:28:00 110 mL/min/1. 73 >59 Final BUN/Creatinine Ratio Mar- 03:28:00 33 9-23 H Final Sodium Mar- 03:28:00 140 mmol/L 134-144 Final Potassium Mar- 03:28:00 4.8 mmol/L 3.5-5.2 Final Chloride Mar- 03:28:00 102 mmol/L 96-106 Final Carbon Dioxide, Total Mar- 03:28:00 23 mmol/L 20-29 Final Calcium Mar- 03:28:00 10.0 mg/dL 8.7-10.2 Final Protein, Total Mar- 03:28:00 7.2 g/dL 6.0-8.5 Final Albumin Mar- 03:28:00 4.8 g/dL 3.5-5.5 Final Globulin, Total Mar- 03:28:00 2.4 g/dL 1.5-4.5 Final A/G Ratio Mar- 03:28:00 2.0 1.2-2.2 Final Bilirubin, Total Mar- 03:28:00 0.2 mg/dL 0.0-1.2 Final Alkaline Phosphatase Mar- 03:28:00 64 IU/L 39-117 Final AST (SGOT) Mar- 03:28:00 18 IU/L 0-40 Final ALT (SGPT) Mar- 03:28:00 14 IU/L 0-32 Final Panel Description: Sedimentation Rate-Westergren Final Sedimentation Rate-Westergren 01:47:00 6 mm/hr 0-40 Final Panel Description: C-Reactive Protein, Quant Fi nal C-Reactive Protein, Quant 07:28:00 1 mg/L 0-10 Final Advance Directives Directive Yes / No Effective Date File Name No Information Encounters Encounter Description Practice Location Reason(s) For Visit Diagnoses Date Provider Providers Copied on Encounter Office/Outpa tient Visit, Est [facility] Rheumatology Osteoporosis , [address], [place], [place], [id number], tel:[phone] [facility] joy Rheumatoid arthritis (chief complaint) Rheumatoid arthritis, unspecifiedAn terior spinal artery compression syndrome of lumbar regionBody mass index (BMI) 27.0-27.9, adultOther residential (current) drug therapy 9 Hernán Lara. [address], [facility]umatolog [facility] & [facility] s [place], [place], [place], [facility], . tel:[phone] Referring Provider: Marco Jim I, [address] [facility]umatology & Osteoporosis [place], [place], [place], [facility]. tel:[phone] [facility] Rheumatology Osteoporosis , [address], [place], [place], [id number], tel:[phone] [facility] elizabetororosemarie Rheumatoid arthritis, unspecifiedOt her residential (current) drug therapy 9 Hernán Lara. [address], [facility]umatolog [facility] & Osteoporosi s [place], [place], [address], . tel:[phone] Office/Outpa tient Visit, Est [facility] Rheumatology Osteoporosis , [address], [place], [place], [id number], tel:[phone] [facility] elizabetorough Rheumatoid arthritis (chief complaint) Rheumatoid arthritis, unspecifiedOt her residential (current) drug therapyBody mass index (BMI) 26.0-26.9, adultAnterior spinal artery compression syndrome of lumbar regionPrimary osteoarthriti s of both hips 9 Hernán Glez [address], [facility]umatolog [facility] & [facility]osi s [place], [place], [address], [place]. tel:[phone] Referring Provider: Marco Jim I, [address] [facility] [address] [facility]umatology & Osteoporosis [place], [place], [address]. tel:[phone] [facility] Rheumatology Osteoporosis , [address] [place] [address] [address], [place], [place], [id number], [place] tel:[phone] [facility] Rheumatoid arthritis (chief complaint) Acute rheumatoid arthritisOthe r terminologist (current) drug therapy 9 Hernán Glez [address], [facility] [place], [place], [address], [place]. tel:[phone] Referring Provider: Marco Jim I, [address] [place] [address] [address] [facility] Rheumatology & Osteoporosis [place], [place], [address]. tel:[phone] Office/Outpa tient Visit, Est [facility] Rheumatology Osteoporosis , [address] [place] [address] [address], [place], [place], [id number], [place] tel:[phone] [facility] Rheumatoid arthritis (chief complaint) Acute rheumatoid arthritisOthe r terminologist (current) drug therapy 9 Hrenán Glez [address], [facility] Rheumatolog y & Osteoporosi s [place], [place], [address], [place]. tel:[phone] Referring Provider: Marco Jim I, [address] [facility] [address] [facility] Rheumatology & Osteoporosis [place], [place], [address]. tel:[phone] Office/Outpa tient Visit, Est [facility] Rheumatology Osteoporosis , [address] [facility] [address], [place], [place], [id number], [place] tel:[phone] [facility] Rheumatoid arthritis (chief complaint) Acute rheumatoid arthritisOthe r terminologist (current) drug therapy 9 Hernán Lara. [address], [facility], [place], [address], [place]. tel:[phone] Referring Provider: Marco Jim I, [address] [facility]ology [facility] Osteoporosis Center, [place], [address]. tel:[phone] Family History Family Member Type Diagnosis Age At Onset No Information Payers Payer name Insurance type Covered libertarian ID Authorlibiaa praveena(s) [facility] [id number] Social History Type Description Quantity Date Captured Comments Alcohol Use Details Unknown Caffeine Use Details Unknown Tobacco Use Status No Information Smoking Status No Information Sex Female Vital Signs Date / Time: Height Weight BMI Pulse Rate Blood Pressure Temperature Respiratory Rate Body Surface Area Head Circumference Head Circ. Percentile Wt./Aman. Percentile BMI percentile Pulse Ox Inhaled Ox 9:31 AM 66.00 in 78.018 kg (172.00 lbs) 27.7 6 kg/m eter (2) 1.91 meter(2) Chief Complaint And Reason For Visit From encounter dated '03/25/2019 09:15'. Rheumatoid arthritis (chief complaint) Reason For Referral Reason For Referral No Information Plan Of Treatment Date Type Action Status Goal Lifestyle educat ion regarding diet completed Goal Lifestyle educat ion regarding diet completed Future Order: Radiology Order XR Hips With Pelvis Bilat 2 Views (Adult) ([id number]), Appointment on: Ordered Future Order: Radiology Order XR Lumbosacral Spine 2-3 Views ([id number]), Appointment on: Ordered Future Order: Lab Order CBC With Differential/Platelet ([id number]), Appointment on: , Sent on: Sent Future Order: Lab Order Sediment ation Rate-Westergren ([id number]), Appointment on: , Sent on: Sent Future Order: Lab Order C-Reacti ve Protein, Quant ([id number]), Appointment on: , Sent on: Sent Future Order: Lab Order Comp Met abolic Panel (14) ([id number]), Appointment on: , Sent on: Sent Future Order: Lab Order Pt Servi ce Center ([id number]), Sent on: Sent Future Order: Lab Order CBC With Differential/Platelet ([id number]), Appointment on: , Collected on: , Sent on: Sent Future Order: Lab Order Sediment ation Rate-Westergren ([id number]), Appointment on: , Collected on: , Sent on: Sent Future Order: Lab Order C-Reacti ve Protein, Quant ([id number]), Appointment on: , Collected on: , Sent on: Sent Future Order: Lab Order Comp Met abolic Panel (14) ([id number]), Appointment on: , Collected on: , Sent on: Sent History Of Present Illness Encounter Date Complaint History Of Prese nt Illness Rheumatoid arthritis Rheumatoid arthritis (comments) 53 -year-old white female with rheumatoid arthritis. The patient is maintained on weekly Enbrel and methotrexate. The patient denies having morning stiffness or swelling of the hands or wrist for greater than 1 hour. The patient denies morning metatarsal pain for greater than 30 minutes. The patient denies having any medication side effects. The patient has been receiving physical therapy for her lumbar spine and bilateral trochanteric bursitis. The patient is under some stress as she is moving to [place]. Rheumatoid arthritis Rheumatoid arthritis (comments) 53-year-old white female with rheumatoid arthritis. The patient is currently maintained on weekly Enbrel and weekly methotrexate. The patient states that she is more symptomatic with increased activity. The patient denies having morning stiffness or swelling of the hands or wrist for greater than 1 hour. The patient denies morning metatarsal pain for greater than 30 minutes. The patient denies having any medication side effects. The patient states that she feels more symptomatic with significant physical activity, as well as with prolonged sitting. tHE PATIENT HAD X-RAYS OF HER LUMBAR SPINE WELL HER RIGHT AND LEFT HIPS PERFORMED TODAY. x-RAY OF THE LUMBAR SPINE SHOWING SPONDYLOLISTHESIS OF l4-l5. x-RAY OF THE RIGHT AND LEFT HIPS SHOWED NORMAL JOINT SPACES. Rheumatoid arthritis (comments) 53y.o white female with a rheumatoid arthritis. The patient is currently maintained on weekly Enbrel and methotrexate. During our last visit September 10, 2018 the patient had a normal ESR of 6 and normal C-reactive protein. The patient denies having morning stiffness or swelling of the hands or wrist for greater than 1 hour. The patient denies morning metatarsal pain for greater than 30 minutes. The patient denies having any medication side effects. The patient continues to have left more so than right trochanteric bursitis. Rheumatoid arthritis Rheumatoid arthritis (comments) 52-year-old white female with a history of rheumatoid arthritis. The patient's rheumatoid arthritis is under good clinical control taking weekly Enbrel as well as methotrexate approximately every 10 days. The patient denies having morning stiffness or swelling of the hands or wrist for greater than 1 hour. The patient denies morning metatarsal pain for greater than 30 minutes. The patient denies having any medication side effects. Rheumatoid arthritis Rheumatoid arthritis Rheumatoid arthritis (comments) 52-year-old white female with rheumatoid arthritis. The patient until recently has been taking Enbrel 50 mg via subcutaneous route weekly as well as methotrexate 15 mg by mouth every week. The patient's last Enbrel dosage was June 13, 2018. At this time, morning stiffness of the patient's hands Or taking more than 1 hour to go away. She is additionally having bilateral shoulder pain., As well as for bilateral hip pain. Functional Status Date Functional Assessmen t No Information Instructions Date Instruction Additional Infor mation Lifestyle education regarding di et Related to Body mass index (BMI) 27.0-27.9, adult Lifestyle education regarding di et Related to Body mass index (BMI) 26.0-26.9, adult Assessments Type Assessment Date assessment Rheumatoid arthritis, unspecifie d assessment Anterior spinal artery compressi on syndrome of lumbar region assessment Body mass index (BMI) 27.0-27.9, adult impression 53 -year-old white f emale with rheumatoid arthritis. The patient will continue her current RA medical regimen. Lab work will be performed today. Maira is moving to [place]. I will see her back as needed. assessment Other residential (current) drug t herapy Patient Care Teams Name Effective Dates (start - stop) Status Members No Information
--- OUTSIDE RECORDS SUMMARY | 2022-11-28 09:38 | XMS_ITS | Continuity of Care Document ---
Author Organization [facility] Address [address] [facility] [address] [place] [address] Phone Care Team Providers Care Assistant Community Director Name Role Phone Sarmad Bethea MD Unavailable Unavailabl e Procedures Procedure Date Office/Oupt E&M New Pt 30 Mins Surgical Stockings CVR Reveal Thigh High Advance Directives Directive Yes / No Effective Date File Name No Information Encounters Encounter Description Practice Location Reason(s) For Visit Diagnoses Date Provider Providers Copied on Encounter [facility], [address], [place], [place], [id number], [place] tel:[phone] [facility] [place] [facility] ([facility]) (peripheral) 3 Neema Bañuelos. [address], [place], [address], . tel:[phone] Referring Provider: Dejan Zhang M.D., [address] [facility], [place], [address]. tel:[phone] Office/Oupt E&M New Pt 30 Mins [facility], [address] [place] [address], [place], [id number], tel:[phone] [facility] [place] Localized edemaVenous insufficiency (chronic) (peripheral) 3 Neema Bañuelos. [address], [place], [address], [place]. tel:[phone] Referring Provider: Dejan Zhang M.D., [address], [place], [address]. tel:[phone] Family History Family Member Type Diagnosis Age At Onset No Information Payers Payer name Insurance type Covered constitution party ID Alondra grissom(s) [facility] [id number] Social History Type Description Quantity Date Captured Comments Sex Female Smoking Status No Information Chief Complaint And Reason For Visit No Information Reason For Referral Reason For Referral No Information Plan Of Treatment Date Type Action Status Goal Diet education completed Referral Ordered: Weight management: Referral to physician timeframe: 3 Months (related to Body mass index (BMI) 27.0-27.9, adult) ordered History Of Present Illness Encounter Date Complaint History Of Prese nt Illness No Information Functional Status Date Functional Assessmen t No Information Instructions Date Instruction Additional Infor mation Diet education Related to Body mass index (BMI) 27.0-27.9, adult Giving Encouragement to exercise Related to Body mass index (BMI) 27.0-27.9, adult Lifestyle education Related to B mary ann mass index (BMI) 27.0-27.9, adult Patient education booklet given Related to Localized edema Compression stocking usage as conservative measure Related to Localized edema Assessments Type Assessment Date assessment Venous insufficiency (chronic) ( peripheral) Patient Care Teams Name Effective Dates (start - stop) Status Members No Information
[2025-05-11 08:49] VITALS: BP 110/90; PULSE 71; O2SAT 95; BMI 29.2
--- NOTE | 2025-05-11 08:49 | A.OFFVIS_ITS ---
Vital Signs 05/11/25 08:49 Height 5 ft 6 in Weight 181 lb BMI 29.2 BP 110/90 H Blood Pressure Location Lt brachial Position Sitting Pulse 71 Pulse Source Pulse Oximeter Pulse Oximetry (%) 95 Oxygen Delivery Method Room Air Intake Visit Reasons: 3 Months Intake Note: Patient presents for follow up on rheumatoid arthritis. Accompanied by: Self / Same As Patient Allergies No Known Allergies Allergy (Verified 01/27/25 08:39) HPI HPI 3 Months: Details: She has been feeling sore all over. She is also experiencing pain in her right hip. She has more pain than stiffness. No recent infection. She has been feeling more depressed in this year and is trying to establish with a therapist. [facility] Medical History (Updated 05/13/25 @ 09:18 by Nacho Ngo MD) Tenonitis Bilateral bunions Bursitis of hip, right Rheumatoid aortitis Social History Alcohol intake: current Alcohol intake frequency: holidays/special occasions only Alcohol type: wine Patient Tobacco Use Status: Never used Tobacco Physical Exam Vital Signs: Last Vital Signs Pulse 71 05/11/25 08:49 BP 110/90 H 05/11/25 08:49 Pulse Ox 95 05/11/25 08:49 Oxygen Delivery Method Room Air 05/11/25 08:49 BMI result Body Mass Index 29.2 Const Other: General: Comfortable CVS: RRR Respiratory: clear to auscultation bilaterally. Good respiratory effort Skin: No lesions seen MSK: Nontender joints. She has volar subluxation right 2nd and 3rd MCP with bilateral ulnar deviation of MCPs. Normal range of motion of upper extremities and lower extremities. Bilateral trochanteric bursa tenderness found right greater than left. Diffuse allodynia Office Procedures AMB Joint Injection/Aspiration Joint Injection/Aspiration Details: Right trochanteric bursa Prep: site was prepped using aseptic technique Injected: 40 mg of, Kenalog, with 1 mL of and 1% plain lidocaine Procedure: Informed verbal consent was obtained. The patient tolerated the procedure well. Postprocedure protocol was discussed with patient. Coding 14074 - Large joint Procedure code (CPT) selection complete Office Meds lidocaine (PF) 10 mg/mL (1 %) injection solution Performing Provider: Nacho Ngo MD Performing Location: [facility] [place] [facility] Administered by: Romina Helm RN on 05/11/25 11:57 Dose Route Admin Location Dispensed Lot Number Expiration Date [facility] Rooming House Operator 1 mL Infiltration 2 mL [id number] 12/05/26 88953-662-77 EVELYN REID Total Dispensed Waste 2 mL 50 % Kenalog 40 mg/mL suspension for injection Performing Provider: Nacho Ngo MD Performing Location: [facility] [place] [facility] Administered by: Rmoina Helm RN on 05/11/25 11:57 Dose Route Admin Location Dispensed Lot Number Expiration Date [facility] Rooming House Operator 40 mg intrabursal 1 mL [id number] 01/04/27 [address]-9 AMNEA Debra DOMINGOEN Total Dispensed Waste 1 mL 0 % Assessment & Plan Assessment & Plan (1) Rheumatoid arthritis: Comment: Controlled on current regimen. Rheumatology history: Diagnosed with rheumatoid arthritis early . Seronegative deforming. She was on methotrexate and Enbrel when diagnosed- 06/2020. Enbrel change to Humira due to pain from extensive tenosynovitis of foot on MRI, which improved swelling and pain. Humira 07/2020-11/2024 (changed to Hyrimoz due to insurance requirement) - secondary treatment failure. Enrebl 11/2024-. 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 Enbrel started November 2024. Code(s): M06.9 - Rheumatoid arthritis, unspecified Category: Medical Plan: Labs for drug monitoring on high-risk medication ordered. We will need to mail patient labs to have done at her local [facility] per patient request Continue enbrel 50mg SC weekly Continue methotrexate 17.5 mg once weekly Continue folic acid 1 mg daily Continue meloxicam 15 mg PRN joint pain Return to clinic in 3 months (2) Other middle or intermediate school principal (current) drug therapy: Code(s): Z79.899 - Other fpc (current) drug therapy Category: Medical Plan: See above (3) Trochanteric bursitis of both hips: Comment: Recurrent. Failed cortisone injections. She has completed PT with initial benefit but it is not long lasting. Code(s): M70.61 - Trochanteric bursitis, right hip; M70.62 - Trochanteric bursitis, left hip Category: Medical Plan: She received right trochanteric bursa cortisone injection today Return to clinic 3 months (4) Fibromyalgia: Comment: Diffuse allodynia is consistent with diagnosis of fibromyalgia. We discussed diagnosis and management. Code(s): M79.7 - Fibromyalgia Category: Medical Plan: Start cymbalta 30mg qd. I recommend that she follow up with PCP for further management of fibromyalgia. I encouraged her to establish with therapist for depression management. Cymbalta is indicated for both treatment of fibromyalgia and depression. She will call in 1 month if no change in symptoms on cymbalta. I will then increase dose to 60 mg daily RTC 3 months Orders: Orders C Reactive Protein 05/11/25 Z79.899 - Other middle or intermediate school principal (current) drug therapy Complete Blood Count Auto Diff 05/11/25 Z79.899 - Other fpc (current) drug therapy Alanine Aminotransferase 05/11/25 Z79.899 - Other fpc (current) drug therapy Aspartate Amino Transferase 05/11/25 Z79.899 - Other fpc (current) drug therapy Creatinine 05/11/25 Z79.899 - Other fpc (current) drug therapy Erythrocyte Sedimentation Rate 05/11/25 Z79.899 - Other middle or intermediate school principal (current) drug therapy AMB Joint Injection/Aspiration 05/11/25 M70.61 - Trochanteric bursitis, right hip, M70.62 - Trochanteric bursitis, left hip Medications: New folic acid 1 mg PO DAILY 90 tabs 4RF duloxetine 30 mg PO DAILY 30 caps 11RF Refilled methotrexate sodium 17.5 mg (7 x 2.5 mg) PO QWEEK 84 tabs 0RF 12 weeks Coding Level of Care Code Est Pt Level 4 (88916) Complex EM visit Add On G2211 Diagnoses Rheumatoid arthritis M06.9 Other middle or intermediate school principal (current) drug therapy Z79.899 Trochanteric bursitis of both hips M70.61; M70.62 Fibromyalgia M79.7 CPT Codes Coding - 74553 Large joint: 47704 - Large joint ([id number])
--- OUTSIDE RECORDS SUMMARY | 2025-05-11 09:12 | XMS_ITS | Clinical Summary ---
Author Organization [facility] Address [address] [place] [address] Care Team Providers Care Insurance Customer Service Specialist Name Role Phone Frantz Ngo MD Primary Care Provider [phone] Allergies No known active allergies Medications Medication [...] 07/08/2004 Last Assessment & Plan: Managed by senior catering sales manager Resolved Problems Problem Noted Date Diagnosed Date [...] Cervical Cancer Screening (Pap Smear) 02/06/2024 02/05/2021 Preventative Health Evaluation 09/19/2024 09/20/2023, 09/18/2022, 08/10/2021, Additional history exists COVID-19 Vaccine ( season) 2025 04/24/2022, 12/08/2021, 05/22/2021, Additional history exists Influenza Vaccine (#1) 2025 [...] age to complete this topic Care Teams Insurance Customer Service Specialist Relationship Specialty Start Date End Date Frantz Ngo MD PCP - General Family Medicine 07/15/19
--- OUTSIDE RECORDS SUMMARY | 2025-05-11 09:12 | XMS_ITS | Clinical Summary ---
Author Organization [facility] Address [address] [place] [id number] Care Team Providers Care Lithographed Plate Inspector Name Role Phone Unavailable Primary Care Provider Unavailabl e Allergies No known active allergies Medications atorvastatin (LIPITOR) 10 mg tablet Take 5 mg by mouth in the morning. Active cholecalciferol , vitamin D3, 50 mcg (2,000 unit) tablet Take 2,000 Units by mouth in the morning. Active cyanocobalamin 1,000 mcg tablet Take 1,000 mcg by mouth in the morning. Active EnbreL SureClick 50 mg/mL (1 mL) pen injector 04/19/20 25 Active folic acid (FOLVITE) tablet 04/22/20 19 Active meloxicam (MOBIC) 15 mg tablet once as needed. Active methotrexate (TREXALL) 15 mg tablet Take 17.5 mg by mouth. Active multivitamin (THERAGRAN) tablet Take 1 tablet by mouth in the morning. Active zinc gluconate 50 mg tablet Take 50 mg by mouth in the morning. Active ascorbic acid, vitamin C, (vitamin C) 100 mg tablet Take 100 mg by mouth in the morning. Active fluticasone propionate (FLONASE) 50 mcg/actuation nasal sprayIndication s:Hyposmia,Simone rgic rhinitis, unspecified seasonality, unspecified trigger SHAKE LIQUID AND USE 2 SPRAYS IN EACH NOSTRIL IN THE MORNING 48 g 1 04/20/20 25 Active fluticasone propionate (FLONASE) 50 mcg/actuation nasal sprayIndication s:Hyposmia,Simone rgic rhinitis, unspecified seasonality, unspecified trigger Administer 2 sprays into each nostril in the morning. 16 g 5 04/20/20 25 025 Discontinued Active Problems Problem Noted Date Diagnosed Date Hyposmia 04/20/2025 Assessment & Plan (04/20/2025 9:06 AM EDT): Patient with a 6-year history of hyposmia. She can grape picker some odors and the odors she can grape picker are true odors with no modifications. Patient states that the flavor of food is normal to her suggesting that retronasal smell may in fact be intact. Patient does not recall whether she had any viral infections during the onset of her symptoms. On our exam today the nasal cavity is relatively clear. She did have evidence of a recent upper respiratory infection. She does have evidence of reflux on our exam and does have a lot of raised lymphoid tissue consistent with possible allergic rhinitis. Our plan will be to put her on Flonase 2 puffs each nostril once a day. She will insert the nozzle into the left nostril with the right hand with the head bent forward and then insert the nozzle into the right side using the left hand. This will be to protect the septum. She will put 2 puffs in once a day. Patient does have some symptoms of reflux especially at night. I will put her on alginate product reflux Gourmet. I like the patient to get smell tested and we will get her on the schedule. Patient does not have gas appliances at home. She is always concerned about food she puts in the fridge and she has someone check out the food before she eats it. I like the patient to start smell therapy with the recipe noted below Home Smell Therapy Kit Items to Purchase: 4 b rown/carmen glass jars (Size: 50 mL or 2 oz) Cotton Pads/Balls Essential Oils Mariah ([place]) Lemon (Fruity) Clove (Aromatic) Eucalyptus (Resinous) Preparation: Label each jar with one of the essential oils On cotton balls/pads, place 1 mL of each essential oil Place the cotton ball/pad in the jar and store away from sunlight Directions for Use: Sniff EACH odor TWICE a day (morning & night) Smell each odor for 15 seconds then wait 10 seconds between odors After three months change oils to the following Menthol Thyme [place] Naima Use new oils for an additional three months then change to the following Green Tea Bergamot Madai Katie Use these three for an additional 3 months Allergic rhinitis 04/20/2025 Assessment & Plan (04/20/2025 9:06 AM EDT): Patient with evidence of allergic rhinitis I will put her on Flonase 2 puffs each nostril once a day. She will insert the nozzle into the left side with the right hand and the right nostril using the left hand. She will apply 2 puffs once daily. Laryngopharyngeal reflux 04/20/2025 Assessment & Plan (04/20/2025 9:07 AM EDT): Patient with evidence of laryngal pharyngeal reflux. She has also had some episodes of reflux at night and has woken choking suggesting that she is getting reflux and up into the hypopharynx. I recommendation is that she try an alginate product reflux Gourmet. I recommend the patient try the alginate containing product Reflux Gourmet which is available online on [employer]. Patient can take a teaspoon of this after every meal and prior to bed.Try this for at least 4 weeks. . Tinnitus of left ear 04/20/2025 Assessment & Plan (04/20/2025 9:13 AM EDT): Patient with a 6-year history of tinnitus in the left ear there is a constant high-pitched tinnitus. She is not complaining of any hearing loss. I will get her scheduled for an audiogram and I may recommend she see Dr. Tristan in the future. Encounters Date Type Department Care Team Description 04/22/2025 8:00 AM EDT Procedure visit [facility] Department of Audiology [address] [place] [address] Cretaqueria, KYLE Nolen,CCC-A Sensorineural hearing loss (SNHL) of both ears (Primary Dx); Tinnitus of left ear 04/20/2025 8:30 AM EDT Office Visit [facility] of Otol[facility]ology [address] [place] [address] Alexys Lozada MD Hyposmia (Primary Dx); Allergic rhinitis, unspecified seasonality, unspecified trigger; Laryngopharyngeal reflux; Tinnitus of left ear from Last 3 Months Social History Tobacco Use Types Packs/Day Years Used Date Smoking Tobacco: Never Smokeless Tobacco: Never Tobacco Cessation:Counseling Given: Not Answered Comments Unknown Sex and Gender Information Value Date Recorded Sex Assigned at Not on file Legal Sex Female 9:48 AM EDT Gender Identity Not on file Sexual Orientation Not on file COVID-19 Exposure Response Date Recorded In the last 10 days, have yo u been in contact with someone who was confirmed or suspected to have Coronavirus/COVID-19? No / Unsure 04/22/2025 8:11 AM EDT Last Filed Vital Signs Vital Sign Reading Time Taken Comments Blood Pressure 128/86 04/20/2025 8:22 AM EDT Pulse - - Temperature - - Respiratory Rate - - Oxygen Saturation - - Inhaled Oxygen Concentration - - Weight 80.7 kg (178 lb) 04/20/2025 8:22 AM EDT Height 167.6 cm (5' 6 ) 04/20/2025 8:22 AM EDT Body Mass Index 28.73 04/20/2025 8:22 AM EDT Plan of Treatment Upcoming Encounters Date Type Department Care Team (Late st Contact Info) Description 05/25/2025 11:00 AM EST Office Visit [facility] Department of Otolaryngology [address] [place] [address] Alexys Lozada MD [address] [facility] [id number] Health Maintenance Due Date Last Done Comments Breast Cancer Screening 1964 CT Colonography 1964 FIT-DNA (Cologuard) 1965 FIT 1965 FOBT 1965 Flex Sigmoidoscopy - 5y 1965 HIV Screening 1964 Hepatitis C Screening 1982 Pneumococcal Vaccine, 50+ Years (2 of 2 - PCV) 07/15/2020 07/15/2019 Zoster Vaccines (2 of 2) 08/28/2024 07/03/2024 Pap Smear 04/04/2026 04/04/2023 Cervical Cancer Screening 04/04/2028 HPV/Cotest 04/04/2028 04/04/2023 Colonoscopy 05/23/2030 05/23/2020 Colorectal Cancer Screening 05/23/2030 DTaP,Tdap,and Td Vaccines (2 - Td or Tdap) 05/08/2032 05/08/2022 COVID-19 Vaccine Completed 07/03/2024, 07/2022, 04/24/2022, Additional history exists Influenza Vaccine Completed 04/20/2025, , 05/20/2024, Additional history exists HPV Vaccines Aged Out No longer eligi ble based on patient's age to complete this topic Hepatitis A Vaccines Aged Out No long er eligible based on patient's age to complete this topic MMR Vaccines Aged Out No longer eligi ble based on patient's age to complete this topic Meningococcal Vaccine Aged Out No ilana reno eligible based on patient's age to complete this topic Insurance
--- OUTSIDE RECORDS SUMMARY | 2025-05-11 09:12 | XMS_ITS | Clinical Summary ---
Author Organization [facility] Address [address] [place] [address] Phone Care Team Providers Care Mushroom Picker Name Role Phone Frantz Ngo MD Primary Care Provider [phone] Allergies No known active allergies Medications acetaminophen [...] to return to clinic RA (rheumatoid arthritis) ([facility] V24, [facility] V28) 07/08/2004 Overview (06/15/2024): Last Assessment & Plan: Managed by network associate Immunizations Immunization Administration Dates Next Due Influenza Quadravalent, MDCK [...] History Date Comments RA (rheumatoid arthritis) ([facility] [place] V24, [facility] V28) 2004 DX:RA (rheumatoid arthritis) ([facility]) Varicella DX:Varicella Hyperlipidemia DX:Hyperlipidemi a Left foot [...] Description 01/10/2026 9:00 AM EDT Office Visit [facility] [address] [id number] Dejan Zhang MD [address] [facility] [address] [place] [address] Health Maintenance Due Date Last Done Comments RSV Immunization Adult Patients (1 - Risk 50-74 years 1-dose series) 2014 Pneumococcal Vaccine: 50+ Years (2 of 2 - PCV) 07/15/2020 07/15/2019 HIV Screening 06/14/2022 Social Influencers of Health Screening 06/14/2022 Depression Screening 07/08/2024 Zoster Vaccines (2 of 2) 08/28/2024 07/03/2024 COVID-19 Vaccine ( season) 2025 04/24/2022, 12/08/2021, 05/22/2021, Additional history exists Influenza Vaccine (#1) 2025 03/22/2023, 2021 Breast Cancer Screening 05/15/2025 05/15/20 23, 05/14/2022, 05/11/2021, Additional history exists Colorectal Cancer Screening: Colonoscopy 05/23/2025 05/23/2020 Cervical Cancer Screening: HPV 04/04/2028 04/04/2023 Cholesterol Screening (Lipid Panel) 10/24/2028 10/25/2023 DTaP,Tdap,and Td Vaccines (2 - Td or Tdap) 05/08/2032 05/08/2022 Hepatitis C Screening Completed 08/24/2020 HIB Vaccines [...] MD on 05/17/2023 2:33PM. Workstation Name - ALLYSSA Juliane Simeon SAUSAGE COOKER IMG BI PROCEDURES Final Re sult * Cervical Cancer Screening: HPV (04/04/2023) Cervical Cancer Screening: HPV no interpretation , abstracted Historical Provider HEALTH MAINTENANCE Final Result * Hepatitis C Screening (08/24/2020) Hepatitis C Screening abstracted Result [facility] Provider HEALTH MAINTENANCE Final Result * Colonoscopy (05/23/2020) Colonoscopy no interpretation , abstracted Anatomical Region Laterality Modality Other [facility] Provider HEALTH MAINTENANCE Final Result from Last 3 Months or Most Recently Relevant to Health Maintenance Insurance Care Teams Mushroom Picker Relationship Specialty Start Date End Date Frantz Ngo MD PCP - General Family Medicine 07/15/19
--- OUTSIDE RECORDS SUMMARY | 2025-05-11 09:13 | XMS_ITS | Clinical Summary ---
Author Organization [facility] Address [address] [place] [address] Care Team Providers Care Grounds Restoration Specialist Name Role Phone Unavailable Primary Care Provider [...] COVID-19 Vaccine ( - 2023-2 5 season) 2025 RSV Vaccine 50 years and old er and Patients (1 - 1-dose 75+ series) 10/12/2039 Hepatitis B Vaccines Aged Out No long er eligible based on patient's age to complete this topic
== END 2025-05-11 09:49 | disposition home or self-care (01) ==
LOC: HO.RHES 08:44
PROVIDERS: Visit Provider Internal Medicine Rheumatology
DX: M70.61 Trochanteric bursitis, right hip (principal); M70.62 Trochanteric bursitis, left hip
CPT/HCPCS: 20610; 99214

== ENCOUNTER → 2025-05-11 08:44 | Outpatient (BNVA) | payer BC, SELFPAY | PROVIDERS: Visit Provider Internal Medicine Rheumatology | DX: M70.61 Trochanteric bursitis, right hip (principal); M70.62 Trochanteric bursitis, left hip; M79.7 Fibromyalgia; M06.09 Rheumatoid arthritis without rheumatoid factor, multiple sites; Z79.899 Other long term (current) drug therapy | CPT/HCPCS: 20610; J2003; J3301 ==